=== PATIENT | female | born 1990 | race Caucasian/White ===

== ENCOUNTER 2016-05-10 20:58 | Emergency (ER) | payer MEDICAID, OTHER ==
[~2016-05-10] VITALS: Ht 170.2 cm; Wt 56.7 kg
[2016-05-10] MEDS ORDERED: ALPR0.25 PO (21:09)
--- NOTE | 2016-05-10 21:19 | ED EENT ---
History of Present Illness General Chief Complaint: Dental Problems/Pain Stated Complaint: JAW PAIN Nursing Triage Note: LEFT JAW PAIN SINCE 05/09/16. HX TMJ Source: patient Exam Limitations: no limitations History of Present Illness Time seen by provider: 21:18 Initial Comments 26-year-old female patient presents to the emergency department complaints of left jaw pain beginning 05/09/16 due to history of TMJ. Patient states she has been under a lot of stress lately which is causing muscle tension. Denies difficulty swallowing or difficulty breathing. Location Injury Occurred: denies known injury Timing/Duration: gradual Location: facial (left jaw) Prearrival Treatment: over the counter meds (600 mg motrin yesterday x1) Presenting Symptoms/Injuries: left jaw pain Modifying Factors: Worse With Other (worse with movement, palpation) Allergies and Home Medications Allergies Coded Allergies: haloperidol (Verified Allergy, Unknown, 05/10/16) Home Medications Alprazolam 0.25 Mg Tablet Unknown Dose PO UD (Reported) Review of Systems Constitutional: No chills, No dizziness, No fever, No malaise Eyes: No Symptoms Reported Ears: No Symptoms Reported Nose: no symptoms reported Mouth: see HPI Throat: no symptoms reported Respiratory: no symptoms reported Cardiovascular: no symptoms reported Musculoskeletal: see HPI other (left jaw) Skin: no symptoms reported Neurological: No Symptoms Reported All Other Systems Reviewed Negative Unless Noted: Yes (Negative excepted noted.) Past Mkyloqg-Jnffyf-Mpwsum Hx Patient Social History Alcohol Use: Denies Use Recreational Drug Use: No Smoking Status: Current Everyday Smoker Type Used: Cigarettes Recent Foreign Travel: No Contact w/Someone Who Travel: No Recent Infectious Disease Expo: No Recent Hopitalizations: No Physical Abuse Screen: No Sexual Abuse: No Seasonal Allergies Seasonal Allergies: No Surgeries HX Surgeries: Yes Surgeries: Eye Surgery Respiratory Hx Respiratory Disorders: No Cardiovascular Hx Cardiac Disorders: No Neurological Hx Neurological Disorders: No 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 System : No Hx 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 Disorders: No Genitourinary Hx Genitourinary Disorders: No Gastrointestinal Hx Gastrointestinal Disorders: No Musculoskeletal Hx Musculoskeletal Disorders: Yes (TMJ) Endocrine Hx Endocrine Disorders: No HEENT HX ENT Disorders: No Cancer Hx Cancer: No Psychosocial Hx Psychiatric Problems: Yes Behavioral Health Disorders: Anxiety, Bipolar Integumentary HX Skin/Integumentary Disorder: No Blood Transfusions Hx Blood Disorders: No Adverse Reaction to a Blood Tr: No Reviewed Nursing Assessment Reviewed/Agree w Nursing PMH: Yes Family Medical History Significant Family History: No Pertinent Family Hx Physical Exam Vital Signs Vital Sign - Last 12Hours 05/10/16 21:09 Temp 98.5 Pulse 89 Resp 18 B/P 121/79 Pulse Ox 98 O2 Delivery Room Air General Appearance: WD/WN no apparent distress Eyes: bilateral eye EOMI, bilateral eye PERRL, bilateral eye normal inspection Ears: bilateral ear TM normal, bilateral ear auricle normal, bilateral ear canal normal Nose: normal inspection Mouth/Throat: normal mouth inspection pharynx normalNo excessive drooling, No mandibular swelling, No maxillary swelling, No trismus, No uvula swelling, No voice changes, other (bilat TM joint TTP. TM joint does not track smoothly) Neck: full range of motion suppleNo lymphadenopathy (R), No lymphadenopathy (L ), tender lateralNo tender midline Cardiovascular: regular rate, rhythm no murmur Respiratory: lungs clear normal breath sounds no accessory muscle use Neurologic/Psychiatric: alert normal mood/affect oriented x 3 Skin: normal color warm/dry Progress/Results/Core Measures Results/Orders Vital Signs/I&O Vital Sign - Last 12Hours 05/10/16 21:09 Temp 98.5 Pulse 89 Resp 18 B/P 121/79 Pulse Ox 98 O2 Delivery Room Air Blood Pressure Mean: 93 Departure Impression Impression: Primary Impression: TMJ pain dysfunction syndrome Disposition: 01 HOME, SELF-CARE Condition: Improved Departure-Patient Inst. Decision time for Depature: 21:35 Referrals: NO,LOCAL PHYSICIAN (PCP/Family) Primary Care Physician Patient Instructions: Temporomandibular Joint (TMJ) Disorders (DC) Add. Discharge Instructions: All discharge instructions reviewed with patient and/or family. Voiced understanding. Medications as instructed. Tylenol Extra Strength over-the- counter as directed for pain. Ice packs or heating pads as needed for pain. Soft diet. No gum. Follow-up with the family practitioner of choice for recheck and to establish care. Call for appointment time. Return to the emergency department for worsened symptoms or any other concerns. 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
[2016-05-10] MEDS ORDERED: RX-TRAMADOL 50 MG (ULTRAM) TAB PPK#4 PO STA (21:29)
[2016-05-10] MEDS ORDERED: predniSONE 20 MG TAB PO ONE (21:30)
[2016-05-10] MEDS ORDERED: PRD20T PO (21:36)
[2016-05-10] MEDS ORDERED: DICL75TA2 PO (21:36)
[2016-05-10 21:43] VITALS: BP 121/79
== END 2016-05-10 21:42 | disposition home or self-care (01) ==
LOC: ER 21:01
DX: M26.69 Other specified disorders of temporomandibular joint (principal); F17.210 Nicotine dependence, cigarettes, uncomplicated
CPT/HCPCS: 99283

== ENCOUNTER 2016-05-14 13:44 | Emergency (ER) | payer MEDICAID ==
[~2016-05-14] VITALS: Ht 170.2 cm; Wt 59.0 kg
[~2016-05-14 13:44] MED LIST: ALPR0.25 PO; DICL75TA2 PO; PRD20T PO
--- OUTSIDE RECORDS SUMMARY | 2016-05-14 13:50 | XMS REPORT | Continuity of Care Document ---
Author Author [facility] Organization [facility] Address Unknown Phone Unavailable Care Team Providers Care Student Services Director Name Role Phone NO, LOCAL PHYSICIAN PCP Unavailable Insurance Providers Payer Name Policy Number Subscriber Name Relationship Unknown Juliane Lopez 17 Self / Same As Patient Advance Directives Directive Response Recorded Date/Time Advance Directives No 05/10/16 9:09pm Resuscitation Status Full Code 05/10/16 9:09pm Chief Complaint and Reason for Visit Chief Complaint Dental Problems/Pain Reason for Visit [id number] Problems Active Problems Medical Problem Onset Date Status TMJ pain dysfunction syndrome Unknown Acute Medications Current Home Medications Medication Dose Units Route Directions Days/Qty Instructions Start Date Alprazolam 0.25 Mg Unknown Dose Oral As Directed 05/10/16 Diclofenac Sodium 75 Mg 75 Mg Oral Twice A Day as needed for Pain 20 05/10/16 Prednisone 20 Mg 40 Mg Oral Daily 8 05/10/16 Social History Social History Problem Response Recorded Date/Time Alcohol Use Denies Use 05/10/2016 9:09pm Recreational Drug Use No 05/10/2016 9:09pm Recent Foreign Travel No 05/10/2016 9:09pm Recent Infectious Disease Exposure No 05/10/2016 9:09pm Hospitalization with Isolation Denies 05/10/2016 9:09pm Smoking Status Current Everyday Smoker 05/10/2016 9:09pm Type Used Cigarettes 05/10/2016 9:09pm Recent Hopitalizations No 05/10/2016 9:09pm Hospitalization with Isolation Denies 05/10/2016 9:09pm Query Response Start Date Stop Date Smoking Status Current Everyday Smoker Hospital Discharge Instructions No hospital discharge instructions. Plan of Care Discharge Date 05/10/16 9:42pm Disposition 01 HOME, SELF-CARE Condition at Discharge Improved Instructions/Education Provided Temporomandibular Joint (TMJ) Disorders (DC) Forms Provided Local Medical Staff Listing Prescriptions See Medication Section Referrals NO,LOCAL PHYSICIAN - Primary Care Physician Additional Instructions/Education All discharge instructions reviewed with patient and/or family. Voiced understanding. Medications as instructed. Tylenol Extra Strength evpi-htw-[id number] as directed for pain. Ice packs or heating pads as needed for pain. Soft diet. No gum. Follow-up with the family practitioner of choice for recheck and to establish care. Call for appointment time. Return to the emergency department for worsened symptoms or any other concerns. Functional Status No functional status results. Allergies, Adverse Reactions, Alerts Allergen Type Severity Reaction Status Last Updated Haloperidol Allergy Unknown Active 05/10/16 Immunizations No immunization records. Vital Signs Acute Vital Signs Vital Response Date/Time Temperature (Fahrenheit) 98.5 degrees F (97.6 - 99.5) 05/10/2016 9:09pm Temperature (Calculated Celsius) 36.29187 degrees C (36.4 - 37.5) 05/10/2016 9:09pm Temperature Source Temporal 05/10/2016 9:09pm Pulse Rate (adult) 89 bpm (60 - 90) 05/10/2016 9:09pm Respiratory Rate 18 bpm (12 - 24) 05/10/2016 9:09pm O2 Sat by Pulse Oximetry 98 % (88 - 100) 05/10/2016 9:09pm Blood Pressure 121/79 mm Hg 05/10/2016 9:09pm Blood Pressure Mean 93 mm Hg 05/10/2016 9:09pm Pain Numeric Pain Scale 8 05/10/2016 9:09pm Height (Feet) 5 feet 05/10/2016 9:09pm Height (Inches) 7 inches 05/10/2016 9:09pm Height (Calculated Centimeters) 170.479473 cm 05/10/2016 9:09pm Weight (Pounds) 125 pounds 05/10/2016 9:09pm Weight (Calculated Kilograms) 56.402904 kilograms 05/10/2016 9:09pm Capillary Refill Capillary Refill Less Than 3 Seconds 05/10/2016 9:09pm Height 5 ft 7 in Weight 125 lb Body Mass Index 19.6 kg/m^2 Results No known relevant diagnostic tests, laboratory data and/or discharge summary. Procedures No known history of procedures. Encounters Encounter Location Arrival/Admit Date Discharge/Depart Date Attending Provider Departed Emergency Room [facility] 05/10/16 9:01pm 05/10 9:42pm ABBI DUPONT Recent Diagnosis
--- NOTE | 2016-05-14 14:14 | ED Abdominal Pain ---
General Chief Complaint: Abdominal/GI Problems Stated Complaint: CHEST/BREATHING PAINS Nursing Triage Note: ARRIVED VIA AMB TO ROOM 08 WITHOUT DIFFICULTY. COMPLAINS OF UPPER MID ABD PAIN FOR X2 DAYS. Sepsis Screen: No Definite Risk Source of Information: Patient Exam Limitations: No Limitations History of Present Illness Time Seen By Provider: 14:13 Initial Comments To ER with epigastric abdominal pain for the past 2 days. Pain has been constant and worsened by eating. She has also had diarrhea and vomiting. She was started on diclofenac and prednisone 4 days ago for TMJ pain. She does not have a local physician and just moved here from [place], [place]. Timing/Duration: 2-3 Days Severity/Quality: Aching Location: Epigastric Radiation: No Radiation Activities at Onset: None Associated Symptoms: Denies Symptoms Allergies and Home Medications Allergies Coded Allergies: haloperidol (Verified Allergy, Unknown, 05/10/16) Home Medications Pantoprazole Sodium 40 Mg Tablet. #30 40 MG PO DAILY Prescribed by: LATRICIA BROCK on 05/14/16 [id number] Review of Systems Constitutional: see HPI chills EENTM: No Symptoms Reported Respiratory: No Symptoms Reported Cardiovascular: No Symptoms Reported Gastrointestinal: See HPI Abdominal Pain Diarrhea Nausea Genitourinary: No Symptoms Reported Musculoskeletal: no symptoms reported Skin: no symptoms reported Psychiatric/Neurological: No Symptoms Reported Endocrine: No Symptoms Reported Hematologic/Lymphatic: No Symptoms Reported Past Rcwlztw-Vydsxy-Eetsdp Hx Patient Social History Type Used: Cigarettes Recent Foreign Travel: No Contact w/Someone Who Travel: No Recent Infectious Disease Expo: No Recent Hopitalizations: No Seasonal Allergies Seasonal Allergies: No Surgeries HX Surgeries: Yes Surgeries: Eye Surgery Respiratory Hx Respiratory Disorders: No Cardiovascular Hx Cardiac Disorders: No Neurological Hx Neurological Disorders: No 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 System : No Hx 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 Disorders: No 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 Genitourinary Hx Genitourinary Disorders: No Gastrointestinal Hx Gastrointestinal Disorders: No Musculoskeletal Hx Musculoskeletal Disorders: Yes (TMJ) Endocrine Hx Endocrine Disorders: No HEENT HX ENT Disorders: No Cancer Hx Cancer: No Psychosocial Hx Psychiatric Problems: Yes Behavioral Health Disorders: Anxiety, Bipolar Integumentary HX Skin/Integumentary Disorder: No Blood Transfusions Hx Blood Disorders: No Adverse Reaction to a Blood Tr: No Family Medical History Significant Family History: No Pertinent Family Hx Physical Exam Vital Signs VS - Last 72 Hours, by Label 05/14/16 14:09 Temp 98.4 Pulse 100 Resp 18 B/P 125/85 Pulse Ox 98 Capillary Refill : Less Than 3 Seconds General Appearance: WD/WN no apparent distress HEENT: PERRL/EOMI normal ENT inspection Neck: non-tender full range of motion Respiratory: normal breath sounds no respiratory distress no accessory muscle use Gastrointestinal: normal bowel sounds soft tenderness (epigastric) Extremities: normal range of motion non-tender Neurologic/Psychiatric: alert normal mood/affect oriented x 3 Skin: normal color warm/dry Progress/Results/Core Measures Results/Orders Lab Results Laboratory Tests Test 05/14/16 14:50 05/14/16 15:10 Range/Units Alanine Aminotransferase (ALT/SGPT) 11 0-55 U/L Albumin 4.3 3.2-4.5 G/DL Alkaline Phosphatase 51 40-136 U/L Anion Gap 10 5-14 MMOL/L Aspartate Amino Transf (AST/SGOT) 12 5-34 U/L BUN/Creatinine Ratio 16 Band Neutrophils 0 % Basophils # (Auto) 0.0 0.0-0.1 10^3/uL Basophils % (Manual) 0 % Basophils (%) (Auto) 0 0-10 % Blood Urea Nitrogen 12 7-18 MG/DL Calcium Level 9.3 8.5-10.1 MG/DL Carbon Dioxide Level 25 21-32 MMOL/L Chloride Level 104 98-107 MMOL/L Creatinine 0.74 0.60-1.30 MG/DL Eosinophils # (Auto) 0.0 0.0-0.3 10^3/uL Eosinophils % (Manual) 0 % Eosinophils (%) (Auto) 0 0-10 % Estimat Glomerular Filtration Rate > 60 Glucose Level 109 H 70-105 MG/DL Hematocrit 36 35-52 % Hemoglobin 11.9 11.5-16.0 G/DL Hypochromasia SLIGHT Lipase 22 8-78 U/L Lymphocytes # (Auto) 1.4 1.0-4.0 X 10^3 Lymphocytes % (Manual) 6 % Lymphocytes (%) (Auto) 7 L 12-44 % Mean Corpuscular Hemoglobin 29 25-34 PG Mean Corpuscular Hemoglobin Concent 33 32-36 G/DL Mean Corpuscular Volume 87 80-99 FL Mean Platelet Volume 9.1 7.4-10.4 FL Monocytes # (Auto) 0.7 0.0-1.0 X 10^3 Monocytes % (Manual) 3 % Monocytes (%) (Auto) 3 0-12 % Neutrophils # (Auto) 18.7 H 1.8-7.8 X 10^3 Neutrophils % (Manual) 91 % Neutrophils (%) (Auto) 90 H 42-75 % Platelet Count 376 130-400 10^3/uL Potassium Level 4.1 3.6-5.0 MMOL/L Red Blood Count 4.16 L 4.35-5.85 10^6/uL Red Cell Distribution Width 13.3 10.0-14.5 % Sodium Level 139 135-145 MMOL/L Total Bilirubin 0.4 0.1-1.0 MG/DL Total Protein 7.0 6.4-8.2 G/DL White Blood Count 20.8 H 4.3-11.0 10^3/uL Ur Tricyclic Antidepressants Screen NEGATIVE NEGATIVE Urine Amorphous Sediment LARGE AUREA URATES H /LPF Urine Amphetamines Screen NEGATIVE NEGATIVE Urine Bacteria NEGATIVE /HPF Urine Barbiturates Screen NEGATIVE NEGATIVE Urine Benzodiazepines Screen POSITIVE H NEGATIVE Urine Bilirubin NEGATIVE NEGATIVE Urine Cannabinoids Screen NEGATIVE NEGATIVE Urine Casts NONE /LPF Urine Clarity VERY CLOUDY H Urine Cocaine Screen NEGATIVE NEGATIVE Urine Color YELLOW Urine Crystals NONE /LPF Urine Culture Indicated NO Urine Glucose (UA) NEGATIVE NEGATIVE Urine Ketones NEGATIVE NEGATIVE Urine Leukocyte Esterase 1+ H NEGATIVE Urine Methadone Screen NEGATIVE NEGATIVE Urine Methamphetamines Screen NEGATIVE NEGATIVE Urine Mucus NEGATIVE /LPF Urine Nitrite NEGATIVE NEGATIVE Urine Opiates Screen NEGATIVE NEGATIVE Urine Oxycodone Screen NEGATIVE NEGATIVE Urine Phencyclidine Screen NEGATIVE NEGATIVE Urine Propoxyphene Screen NEGATIVE NEGATIVE Urine Protein 1+ H NEGATIVE Urine RBC NONE /HPF Urine RBC (Auto) NEGATIVE NEGATIVE Urine Specific [place] 1.015 L 1.016-1.022 Urine Squamous Epithelial Cells 25-50 H /HPF Urine Urobilinogen NORMAL NORMAL MG/DL Urine WBC RARE /HPF Urine pH 7 5-9 My Orders Orders-LATRICIA BROCK TRANSCRIPTER Antacid Suspension (Mylanta Suspension (05/14/16 14:15) Lidocaine 2% Viscous 15 Ml (Xylocaine Vi (05/14/16 14:15) Cbc With Automated Diff (05/14/16 14:43) Comprehensive Metabolic Panel (05/14/16 14:43) Ua Culture If Indicated (05/14/16 14:43) Urine Bedside (05/14/16 14:43) Drug Screen Stat (Urine) (05/14/16 14:43) Lipase (05/14/16 14:43) Acetaminophen Tablet (Tylenol Tablet) (05/14/16 15:00) Manual Differential (05/14/16 14:50) Tramadol Tablet (Ultram Tablet) (05/14/16 15:15) Saline Lock/Iv-Start (05/14/16 15:14) Fentanyl Injection (Sublimaze Injection (05/14/16 15:15) Ct Abdomen/Pelvis W (05/14/16 15:14) Ns Iv 1000 Ml (Sodium Chloride 0.9%) (05/14/16 15:30) Iohexol Injection (Omnipaque 350 Mg/Ml 1 (05/14/16 15:30) Ns (Ivpb) (Sodium Chloride 0.9% Ivpb Bag (05/14/16 15:30) Medications Given in ED Current Medications Medications Dose Ordered Sig/Chandler Route Start Time Stop Time Status Last Admin Dose Admin Acetaminophen 1,000 mg ONCE ONCE PO 05/14/16 15:00 05/14/16 15:01 DC 05/14/16 14:59 1,000 MG Al Hydrox/Mg Hydrox/Simethicone 30 ml ONCE ONCE PO 05/14/16 14:15 05/14/16 14:16 DC 05/14/16 14:18 30 ML Fentanyl Citrate 50 mcg ONCE ONCE IVP 05/14/16 15:15 05/14/16 15:16 DC 05/14/16 15:26 50 MCG Iohexol 100 ml ONCE ONCE IV 05/14/16 15:30 05/14/16 15:31 DC 05/14/16 15:30 100 ML Lidocaine HCl 15 ml ONCE ONCE PO 05/14/16 14:15 05/14/16 14:16 DC 05/14/16 14:18 15 ML Sodium Chloride 100 ml ONCE ONCE IV 05/14/16 15:30 05/14/16 15:31 DC 05/14/16 15:30 80 ML Vital Signs/I&O Vital Sign - Last 12Hours 05/14/16 14:09 Temp 98.4 Pulse 100 Resp 18 B/P 125/85 Pulse Ox 98 Blood Pressure Mean: 98 Departure Communication Progress Notes 1444-no improvement in pain after GI cocktail. We will obtain labs. 1546-leukocytosis is noted which is likely a white cell demargination given her steroid prescription. Impression Impression: Primary Impression: Nausea vomiting and diarrhea Additional Impression: Leukocytosis Disposition: 01 HOME, SELF-CARE Condition: Stable Departure-Patient Inst. Decision time for Depature: 15:46 Referrals: [facility] (PCP/Family) Primary Care Physician Patient Instructions: Acute Abdomen (Belly Pain), Adult (DC) Add. Discharge Instructions: 1. Medication as directed 2. Follow-up with your doctor next week 3. Return to ER for any worsening All discharge instructions reviewed with patient and/or family. Voiced understanding. Scripts Pantoprazole Sodium (Protonix)40 Mg Tablet.dr40 Mg PO DAILY #30 TAB Prov:LATRICIA BROCK APRN 05/14/16 LATRICIA BROCK APRN May 14, 2016 14:14
[2016-05-14] MEDS ORDERED: LIDOCAINE 2% VISCOUS 15 ML UDC PO ONE (14:15)
[2016-05-14] MEDS ORDERED: ANTACID SUSP 30 ML UDC (MYLANTA) PO ONE (14:15)
[2016-05-14 14:59] LABS: BASOPHILS % (AUTO) 0 % (0-10); EOSINOPHILS % (AUTO) 0 % (0-10); LYMPHOCYTES # (AUTO) 1.4 X 10^3 (1.0-4.0); LYMPHOCYTES % (AUTO) 7 % (12-44); MEAN CORPUSCULAR HEMOGLOBIN 29 PG (25-34); MEAN CORPUSCULAR HGB CONC 33 G/DL (32-36); MEAN CORPUSCULAR VOLUME 87 FL (80-99); MEAN PLATELET VOLUME 9.1 FL (7.4-10.4); MONOCYTES # (AUTO) 0.7 X 10^3 (0.0-1.0); MONOCYTES % (AUTO) 3 % (0-12); NEUTROPHILS # (AUTO) 18.7 X 10^3 (1.8-7.8); NEUTROPHILS % (AUTO) 90 % (42-75); PLATELET COUNT 376 10^3/uL (130-400); RED BLOOD COUNT 4.16 10^6/uL (4.35-5.85); RED CELL DISTRIBUTION WIDTH 13.3 % (10.0-14.5); WHITE BLOOD COUNT 20.8 10^3/uL (4.3-11.0)
[2016-05-14] MEDS ORDERED: ACETAMINOPHEN 500 MG TAB (TYLENOL) PO ONE (15:00)
[2016-05-14] MEDS ORDERED: fentaNYL INJECTION 100 MCG/2 ML AMP IVP ONE (15:15)
[2016-05-14 15:18] LABS: ALANINE AMINOTRANSFERASE 11 U/L (0-55); ALBUMIN 4.3 G/DL (3.2-4.5); ANION GAP 10 MMOL/L (5-14); ASPARTATE AMINO TRANSFERASE 12 U/L (5-34); BILIRUBIN,TOTAL 0.4 MG/DL (0.1-1.0); BLOOD UREA NITROGEN 12 MG/DL (7-18); BUN/CREATININE RATIO 16; CALCIUM 9.3 MG/DL (8.5-10.1); CARBON DIOXIDE 25 MMOL/L (21-32); CHLORIDE 104 MMOL/L (98-107); CREATININE SERUM 0.74 MG/DL (0.60-1.30); GFR ESTIMATED > 60; GLUCOSE 109 MG/DL (70-105); LIPASE 22 U/L (8-78); POTASSIUM 4.1 MMOL/L (3.6-5.0); SODIUM 139 MMOL/L (135-145)
[2016-05-14 15:23] LABS: BILIRUBIN,URINE NEGATIVE (NEGATIVE); KETONES,URINE NEGATIVE (NEGATIVE); LEUKOCYTE ESTERASE ,URINE 1+ (NEGATIVE); NITRITE,URINE NEGATIVE (NEGATIVE); PH,URINE 7 (5-9); PROTEIN,URINE 1+ (NEGATIVE); UROBILINOGEN,URINE NORMAL (NORMAL)
[2016-05-14] MEDS ORDERED: NS 100 ML (IVPB) BAG IV ONE (15:30)
[2016-05-14] MEDS ORDERED: IOHEXOL 350 MG/ML 100 ML (OMNIPAQUE 350) VIAL IV ONE (15:30)
[2016-05-14] MEDS ORDERED: NS IV 1000 ML 1,000 ML IV SCH (15:30)
[2016-05-14 15:38] LABS: BAND NEUTROPHILS 0 %; BASOPHILS % (MANUAL) 0 %; EOSINOPHILS % (MANUAL) 0 %; LYMPHOCYTES % (MANUAL) 6 %; NEUTROPHILS % (MANUAL) 91 %
[2016-05-14 15:39] LABS: HYPOCHROMASIA SLIGHT
[2016-05-14 15:39] LABS: SQUAMOUS EPITHELIAL CELL,UR 25-50 /HPF; WBC,URINE RARE /HPF
[2016-05-14] MEDS ORDERED: PANT40TA2 PO (15:47)
--- NOTE | 2016-05-14 16:19 | Diagnostic Imaging Report ---
PROCEDURE: CT abdomen and pelvis with contrast. TECHNIQUE: Multiple contiguous axial images were obtained through the abdomen and pelvis after the administration of intravenous contrast. INDICATION: Upper abdominal pain x2 days. CORRELATION STUDY: None. FINDINGS: LOWER THORAX: Clear. LIVER: Unremarkable. GALLBLADDER: Somewhat contracted but otherwise unremarkable. No significant bile duct dilatation. SPLEEN: Unremarkable. PANCREAS: Unremarkable. ADRENAL GLANDS: Unremarkable. KIDNEYS: Normal configuration. No calcification or obstruction. ABDOMINAL AORTA: Unremarkable, nonaneurysmal. GASTROINTESTINAL TRACT: There are mildly prominent fluid-filled loops of small bowel. No evidence for obstruction. Gas and stool throughout the colon. Normal appendix in the low right lower quadrant. No abdominal ascites or free air. URINARY BLADDER: Relatively decompressed but otherwise unremarkable. REPRODUCTIVE: Intrauterine contraceptive device is present. There is some asymmetric fluid within the low uterine segment and cervical canal. A 2.2 cm left ovarian cyst. No significant free pelvic fluid. Several cystic areas noted about the labia bilaterally, may be reflective of a potential Bartholin's gland cyst. OSSEOUS STRUCTURES: No acute abnormality. IMPRESSION: 1. Mildly prominent loops of small bowel may be reflective of nonspecific enteritis. No evidence for obstruction. Dictated by: Dictated on workstation # [id number]
[2016-05-14] MEDS ORDERED: HYOSCYAMINE 0.125 MG (LEVSIN) TAB PO ONE (16:30)
[2016-05-14 16:37] VITALS: BP 125/85
== END 2016-05-14 16:37 | disposition home or self-care (01) ==
LOC: EDUNIT# 13:44 → ER 13:46
DX: R11.2 Nausea with vomiting, unspecified (principal); R19.7 Diarrhea, unspecified; D72.829 Elevated white blood cell count, unspecified
CPT/HCPCS: 36415; 74177; 80053; 80306; 81000; 83690; 84703; 85007; 85027; 96361; 96374

== ENCOUNTER 2016-05-24 08:03 | Emergency (ER) | payer MEDICAID ==
[~2016-05-24] VITALS: Ht 170.2 cm; Wt 58.5 kg
[~2016-05-24 08:03] MED LIST changes: +PANT40TA2 PO
--- OUTSIDE RECORDS SUMMARY | 2016-05-24 08:09 | XMS REPORT | Continuity of Care Document ---
Author Author [facility] Organization [facility] Address Unknown Phone Unavailable Care Team Providers Care Rn First Assist Name Role Phone [facility] PCP Insurance Providers Payer Name Policy Number Subscriber Name Relationship [facility] [id number] Juliane Lopez 18 Self / Same As Patient Advance Directives Directive Response Recorded Date/Time Advance Directives No 05/10/16 9:09pm Chief Complaint and Reason for Visit Chief Complaint Abdominal/GI Problems Reason for Visit [id number] Leukocytosis Problems Active Problems Medical Problem Onset Date Status Leukocytosis Unknown Acute Nausea vomiting and diarrhea Unknown Acute TMJ pain dysfunction syndrome Unknown Acute Medications Current Home Medications Medication Dose Units Route Directions Days/Qty Instructions Start Date Pantoprazole Sodium 40 Mg 40 Mg Oral Daily 30 05/14/16 Past Home Medications Medication Directions Ordered Status Alprazolam 0.25 Mg Tablet, Unknown Dose Oral As Directed 05/10/16 Discontinued Diclofenac Sodium 75 Mg Tablet.dr, 75 Mg Oral Twice A Day as needed for Pain 05/10/16 Discontinued Prednisone 20 Mg Tab, 40 Mg Oral Daily 05/10/16 Discontinued Social History Social History Problem Response Recorded Date/Time Recent Foreign Travel No 05/14/2016 2:09pm Recent Infectious Disease Exposure No 05/14/2016 2:09pm Type Used Cigarettes 05/10/2016 9:09pm Recent Hopitalizations No 05/14/2016 2:12pm Hospital Discharge Instructions No hospital discharge instructions. Plan of Care Discharge Date 05/14/16 4:37pm Disposition 01 HOME, SELF-CARE Condition at Discharge Stable Instructions/Education Provided Acute Abdomen (Belly Pain), Adult (DC) Prescriptions See Medication Section Referrals [facility] - Primary Care Physician Additional Instructions/Education 1. Medication as directed 2. Follow-up with your doctor next week 3. Return to ER for any worsening All discharge instructions reviewed with patient and/or family. Voiced understanding. Functional Status No functional status results. Allergies, Adverse Reactions, Alerts Allergen Type Severity Reaction Status Last Updated Haloperidol Allergy Unknown Active 05/10/16 Immunizations No immunization records. Vital Signs Acute Vital Signs Vital Response Date/Time Temperature (Fahrenheit) 98.4 degrees F (97.6 - 99.5) 05/14/2016 2:09pm Temperature (Calculated Celsius) 36.33561 degrees C (36.4 - 37.5) 05/14/2016 2:09pm Temperature Source Tympanic 05/14/2016 2:09pm Pulse Rate (adult) 100 bpm (60 - 90) 05/14/2016 2:09pm Respiratory Rate 18 bpm (12 - 24) 05/14/2016 2:09pm O2 Sat by Pulse Oximetry 98 % (88 - 100) 05/14/2016 2:09pm Blood Pressure 125/85 mm Hg 05/14/2016 2:09pm Blood Pressure Mean 98 mm Hg 05/14/2016 2:09pm Pain Numeric Pain Scale 5-Moderate Pain 05/14/2016 3:53pm Pain Numeric Pain Scale 5-Moderate Pain 05/14/2016 3:53pm Height (Feet) 5 feet 05/14/2016 2:09pm Height (Inches) 7 inches 05/14/2016 2:09pm Height (Calculated Centimeters) 170.575849 cm 05/14/2016 2:09pm Weight (Pounds) 130 pounds 05/14/2016 2:09pm Weight (Calculated Kilograms) 58.758324 kilograms 05/14/2016 2:09pm Capillary Refill Capillary Refill Less Than 3 Seconds 05/14/2016 2:09pm Height 5 ft 7 in Weight 130 lb Body Mass Index 20.4 kg/m^2 Results Pending Laboratory Results Test Name Collection Date/Time Procedures No known history of procedures. Encounters Encounter Location Arrival/Admit Date Discharge/Depart Date Attending Provider Departed Emergency Room [facility] 05/14/16 1:46pm 05/14 4:37pm LATRICIA BROCK APRN Departed Emergency Room [facility] 05/10/16 9:01pm 05/10 9:42pm ABBI DUPONT Recent Diagnosis
[2016-05-24] MEDS ORDERED: SULF1TAB35 PO (08:45)
--- NOTE | 2016-05-24 08:45 | ED General ---
General Chief Complaint: Laceration Stated Complaint: RIGHT MIDDLE FINGER LAC Source of Information: Patient Exam Limitations: No Limitations History of Present Illness Time Seen by Provider: 08:25 Initial Comments Patient presents with a laceration on the dorsum of the right middle finger. She obtained the laceration when she put her hand into sink water late last night. She did not present for care at the time of the injury. She presents today because of increasing pain in the finger that radiates up into the hand. This pain limits her range of motion. There are no outward signs of infection such as erythema or purulence. She denies any blunt trauma or high impact injury to the finger or hand. Allergies and Home Medications Allergies Coded Allergies: haloperidol (Verified Allergy, Unknown, 05/10/16) Home Medications Sulfamethoxazole/Trimethoprim 1 Each Tablet #20 1 EACH PO BID Prescribed by: BHAVESH ALANIZ on 05/24/16 0845 Constitutional: no symptoms reported : No Musculoskeletal: see HPI Skin: see HPI Psychiatric/Neurological: No Symptoms Reported Past Apinipd-Xhjouo-Rspwkn Hx Patient Social History Type Used: Cigarettes Recent Foreign Travel: No Contact w/Someone Who Travel: No Recent Hopitalizations: No Seasonal Allergies Seasonal Allergies: No Surgeries HX Surgeries: Yes Surgeries: Eye Surgery Respiratory Hx Respiratory Disorders: No Cardiovascular Hx Cardiac Disorders: No Neurological Hx Neurological Disorders: No 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 System 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 Genitourinary Hx Genitourinary Disorders: No Gastrointestinal Hx Gastrointestinal Disorders: No Musculoskeletal Hx Musculoskeletal Disorders: Yes (TMJ) Endocrine Hx Endocrine Disorders: No HEENT HX ENT Disorders: No Cancer Hx Cancer: No Psychosocial Hx Psychiatric Problems: Yes Behavioral Health Disorders: Anxiety, Bipolar Integumentary HX Skin/Integumentary Disorder: No Blood Transfusions Hx Blood Disorders: No Adverse Reaction to a Blood Tr: No Family Medical History Significant Family History: No Pertinent Family Hx Physical Exam Vital Signs Vital Sign - Last 12Hours 05/24/16 08:25 Temp 97.1 Pulse 70 Resp 16 B/P 111/88 Pulse Ox 98 O2 Delivery Room Air Capillary Refill : General Appearance: WD/WN Mild Distress HEENT: PERRL/EOMI Normal ENT Inspection Respiratory: No Respiratory Distress Extremity: Other (1.5 cm laceration on the dorsum aspect of the right third finger. There is no active bleeding. No evidence of infection such as inflammation, swelling, erythema, or purulence. 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 Patient has significant pain reported that is disproportionate to mechanism and the visible injury. Although no obvious infection is present, antibiotics are being prescribed as a precaution as her pain may be related to early infection. Patient declines x-ray as she denies any blunt trauma that would require x-ray. She reports tetanus booster was last updated 3 years ago. Departure Impression Impression: Primary Impression: Laceration of finger Qualified Code: S61.219A - Laceration without foreign body of unspecified finger without damage to nail, initial encounter Additional Impression: Hand pain, right Disposition: 01 HOME, SELF-CARE Condition: Stable Departure-Patient Inst. Decision time for Depature: 08:35 Referrals: [facility] (PCP/Family) Primary Care Physician Patient Instructions: Laceration Infection Add. Discharge Instructions: Your wound is too old to repair with stitches or glue. Your pain may be resulting from early infection of the wound. Complete your antibiotics as prescribed. Follow-up with your primary care provider or return to the ER if symptoms worsen. You may take ibuprofen up to 600 mg every 6 hours as needed for pain. Add Tylenol up to 1000 mg every 6 hours for additional pain relief if needed. Keep the wound clean and dry except for normal showering and handwashing until the wound heals over. You may apply antibiotic ointment for additional protection of the wound. Work on flexion and extension of the fingers to prevent your hand from becoming stiff while healing. All discharge instructions reviewed with patient and/or family. Voiced understanding. Scripts Sulfamethoxazole/Trimethoprim (Bactrim Ds Tablet)1 Each Tablet1 Each PO BID #20 TAB Prov:BHAVESH NOGUEIRA MD 05/24/16 BHAVESH NOGUEIRA MD May 24, 2016 08:45
[2016-05-24 08:56] VITALS: BP 110/80
== END 2016-05-24 08:56 | disposition home or self-care (01) ==
LOC: EDUNIT# 08:03 → ER 08:06
DX: S61.212A Laceration without foreign body of right middle finger without damage to nail, initial encounter (principal); W45.8XXA Other foreign body or object entering through skin, initial encounter; Y93.G1 Activity, food preparation and clean up; Y92.010 Kitchen of single-family (private) house as the place of occurrence of the external cause; Y99.8 Other external cause status

== ENCOUNTER 2016-08-26 13:30 | Emergency (ER) | payer MEDICAID ==
[~2016-08-26] VITALS: Ht 170.2 cm; Wt 59.0 kg
[~2016-08-26 13:30] MED LIST changes: +SULF1TAB35 PO
[2016-08-26] MEDS ORDERED: AMOX500T2 PO (13:53)
--- NOTE | 2016-08-26 14:04 | ED Lower Extremity ---
General Chief Complaint: Lower Extremity Stated Complaint: RIGHT FOOT INJURY Nursing Triage Note: PT STATES SHE ACCIDENTALLY KICKED HER TOILET, CC OF RT FOOT PAIN. Nursing Sepsis Screen: No Definite Risk History of Present Illness Time seen by provider: 13:55 Initial Comments Evaluation for right foot pain. Patient was trying to kick her dog, she missed and kicked her toilet instead. She is having pain in the first MTP joint of the right foot. She denies any previous history of foot injuries. Onset: just prior to arrival Pain/Injury Location: right 1st toe Method of Injury: direct blow Modifying Factors: Improves With Cold Therapy, Improves With Rest Allergies and Home Medications Allergies Coded Allergies: haloperidol (Verified Allergy, Unknown, 05/10/16) Home Medications Amoxicillin 500 Mg Tablet, 500 MG PO QID, (Reported) Hydrocodone/Acetaminophen 1 Each Tablet, 1 EACH PO Q4H PRN for PAIN, #20 Ref 0 Prescribed by: JAM AVITIA on 08/26/16 1430 Constitutional: no symptoms reported, see HPI EENTM: no symptoms reported, see HPI Respiratory: no symptoms reported, see HPI Cardiovascular: no symptoms reported, see HPI Gastrointestinal: no symptoms reported, see HPI Genitourinary: no symptoms reported, see HPI Musculoskeletal: see HPI, joint pain (right first MTP) Skin: no symptoms reported, see HPI Psychiatric/Neurological: No Symptoms Reported, See HPI All Other Systems Reviewed Negative Unless Noted: Yes Past Mzziekf-Oqfqfe-Qwimuo Hx Patient Social History Alcohol Use: Occasionally Uses Recreational Drug Use: No Smoking Status: Current Everyday Smoker Type Used: Cigarettes Recent Foreign Travel: No Contact w/Someone Who Travel: No Recent Infectious Disease Expo: No Recent Hopitalizations: No Seasonal Allergies Seasonal Allergies: No Surgeries HX Surgeries: Yes Surgeries: Eye Surgery Respiratory Hx Respiratory Disorders: No Cardiovascular Hx Cardiac Disorders: No Neurological Hx Neurological Disorders: No 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 System : No 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 Genitourinary Hx Genitourinary Disorders: No Gastrointestinal Hx Gastrointestinal Disorders: No Musculoskeletal Hx Musculoskeletal Disorders: Yes (TMJ) Endocrine Hx Endocrine Disorders: No HEENT HX ENT Disorders: No Cancer Hx Cancer: No Psychosocial Hx Psychiatric Problems: Yes Behavioral Health Disorders: Anxiety, Bipolar Integumentary HX Skin/Integumentary Disorder: No Blood Transfusions Hx Blood Disorders: No Adverse Reaction to a Blood Tr: No Reviewed Nursing Assessment Reviewed/Agree w Nursing PMH: Yes Family Medical History Significant Family History: No Pertinent Family Hx Physical Exam Vital Signs Vital Sign - Last 12Hours 08/26/16 13:44 Temp 99.6 Pulse 90 Resp 22 B/P (MAP) 139/101 Pulse Ox 100 O2 Delivery Room Air Capillary Refill : Less Than 3 Seconds General Appearance: WD/WN, no apparent distress Neck: non-tender, full range of motion, supple, normal inspection Cardiovascular: normal peripheral pulses, regular rate, rhythm Respiratory: chest non-tender, lungs clear Ankles: right ankle non-tender, right ankle normal inspection, right ankle normal range of motion, right ankle no evidence of injury, right ankle other ( negative anterior drawer, power V/V with dorsiflexion, plantarflexion, inversion and eversion resisted motion. ) Feet: right foot limited range of motion (right rate toe), right foot pain ( right great toe at the MTP joint), right foot soft tissue tenderness (right great toe), right foot swelling (right great toe) Neurologic/Tendon: normal sensation, normal motor functions, normal tendon functions Neurologic/Psychiatric: no motor/sensory deficits, alert, normal mood/affect, oriented x 3 Skin: normal color, warm/dry Progress/Results/Core Measures Results/Orders My Orders Orders - JAM AVITIA Ibuprofen Tablet (Motrin Tablet) (08/26/16 14:05) Foot, Right, 3 View (08/26/16 14:05) Hydrocodone/Apap 5/325 Tablet (Lortab 5 (08/26/16 14:24) Vital Signs/I&O Vital Sign - Last 12Hours 08/26/16 08/26/16 08/26/16 13:44 14:29 14:42 Temp 99.6 99.6 99.6 Pulse 90 88 Resp 22 20 B/P (MAP) 139/101 Pulse Ox 100 100 O2 Delivery Room Air Blood Pressure Mean: 114 Progress Note : Time: 13:55 Progress Note Initial evaluation completed, ibuprofen 600 mg by mouth ordered for pain. X- rays of the right foot. 1430 reviewed x-rays which show nondisplaced oblique fracture of the proximal phalanx of the right great toe. This was discussed with the patient [place] 5/325 mg ordered for pain. Chad tape the right great toe to the second toe Bipin wrap applied and rehabilitation shoe. Instructed patient to seek care from her primary care provider who can then refer her to orthopedics. Diagnostic Imaging Diagonstic Imaging: Xray Plain Films/CT/US/NM/MRI: other (right foot) Comments NAME: [facility] REC#: [id number] PT STATUS: REG ER : 1990 PHYSICIAN: JAM AVITIA ADMIT DATE: 08/26/16/ER Signed Date of Exam: 08/26/16 FOOT, RIGHT, 3 VIEW INDICATION: Right foot pain 3 views of the foot show minimally displaced oblique fracture through the shaft of the proximal phalanx of the big toe. IMPRESSION: Minimally displaced oblique fracture of the proximal phalanx of the right great toe. Dictated by: Dictated on workstation # [id number] Dict: 08/26/16 1423 Trans: 08/26/16 1431 Interpreted by: MARIBELL WICK Electronically signed by: MARIBELL WICK 08/26/16 1431 Reviewed: Reviewed by Me, Reviewed/Discussed (with Dr. Gardner) Departure Impression Impression: Primary Impression: Fracture of great toe of right foot Qualified Codes: S92.414A - Nondisplaced fracture of proximal phalanx of right great toe, initial encounter for closed fracture Disposition: 01 HOME, SELF-CARE Condition: Stable Departure-Patient Inst. Decision time for Depature: 14:15 Referrals: [facility] ([place]/Family) Primary Care Physician Patient Instructions: Toe Fracture (DC) Add. Discharge Instructions: All discharge instructions reviewed with patient and/or family. Voiced understanding. Chad tape toes and wear Rehab Shoe Ice to Right Great toe 20 min, every 2 hours. You will need to see your Primary Care Provider and they can refer you to Dr. Rahman. Ibuprofen 600 MG every 8 hours. Crutches as needed for ambulation. Scripts Hydrocodone/Acetaminophen (Hydrocodon -Acetaminophen 5-325) 1 Each Tablet 1 EACH PO Q4H Y for PAIN, #20 TAB 0 Refills Prov: JAM AVITIA 08/26/16 Work/School Note: Work Release Form Date Seen in the Emergency Department: Aug 26, 2016 Return to Work: August 31, 2016 Restrictions: Need Release from Doctor Copy Copies To 1: ERNIE CHAUDHARI MD Copies To 2: REENA RAHMAN MD, AMY ARNP Aug 26, 2016 14:04
[2016-08-26] MEDS ORDERED: IBUPROFEN TABLET 200 MG TAB PO STA (14:05)
[2016-08-26] MEDS ORDERED: HYDROcodone/APAP 5 MG/325 MG (LORTAB) TAB PO STA (14:24)
--- NOTE | 2016-08-26 14:26 | Diagnostic Imaging Report ---
INDICATION: Right foot pain 3 views of the foot show minimally displaced oblique fracture through the shaft of the proximal phalanx of the big toe. IMPRESSION: Minimally displaced oblique fracture of the proximal phalanx of the right great toe. Dictated by: Dictated on workstation # [id number]
[2016-08-26] MEDS ORDERED: HYDR-3812 PO (14:30)
[2016-08-26 14:42] VITALS: BP 125/95
== END 2016-08-26 14:42 | disposition home or self-care (01) ==
LOC: EDUNIT# 13:30 → ER 13:32
DX: S92.411A Displaced fracture of proximal phalanx of right great toe, initial encounter for closed fracture (principal); F17.210 Nicotine dependence, cigarettes, uncomplicated; W22.09XA Striking against other stationary object, initial encounter; Y92.012 Bathroom of single-family (private) house as the place of occurrence of the external cause; Y99.8 Other external cause status
CPT/HCPCS: 73630; 99283

== ENCOUNTER 2016-08-31 10:28 | Emergency (ER) | payer MEDICAID ==
[~2016-08-31] VITALS: Ht 160 cm; Wt 63.5 kg
[~2016-08-31 10:28] MED LIST changes: +AMOX500T2 PO; +HYDR-3812 PO
[2016-08-31] MEDS ORDERED: NAPR500T3 PO (10:45)
--- NOTE | 2016-08-31 10:46 | ED Lower Extremity ---
General Stated Complaint: RIGHT BIG TOE RECHECK/SWELLING Source: patient Exam Limitations: no limitations History of Present Illness Time seen by provider: 10:43 Initial Comments To ER for pain in the right great toe. She was seen here on August 26 diagnosed with a nondisplaced fracture. She at that time had attempted to kick her dog but missed and kicked something hard instead. She is out of her pain pills. Onset: just prior to arrival Severity: moderate Pain/Injury Location: right 1st toe Method of Injury: direct blow Modifying Factors: Worse With Movement Allergies and Home Medications Allergies Coded Allergies: haloperidol (Verified Allergy, Unknown, 05/10/16) Home Medications Amoxicillin 500 Mg Tablet, 500 MG PO QID, (Reported) Hydrocodone/Acetaminophen 1 Each Tablet, 1 EACH PO Q4H PRN for PAIN, #20 Ref 0 Prescribed by: JAM AVITIA on 08/26/16 1430 Constitutional: see HPI EENTM: see HPI Respiratory: no symptoms reported Cardiovascular: no symptoms reported Genitourinary: no symptoms reported Musculoskeletal: see HPI Skin: see HPI Psychiatric/Neurological: No Symptoms Reported Past Ykoazdf-Gpipuz-Efgbpf Hx Patient Social History Type Used: Cigarettes Recent Foreign Travel: No Contact w/Someone Who Travel: No Recent Hopitalizations: No Seasonal Allergies Seasonal Allergies: No Surgeries HX Surgeries: Yes Surgeries: Eye Surgery Respiratory Hx Respiratory Disorders: No Cardiovascular Hx Cardiac Disorders: No Neurological Hx Neurological Disorders: No 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 System 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 Genitourinary Hx Genitourinary Disorders: No Gastrointestinal Hx Gastrointestinal Disorders: No Musculoskeletal Hx Musculoskeletal Disorders: Yes (TMJ) Endocrine Hx Endocrine Disorders: No HEENT HX ENT Disorders: No Cancer Hx Cancer: No Psychosocial Hx Psychiatric Problems: Yes Behavioral Health Disorders: Anxiety, Bipolar Integumentary HX Skin/Integumentary Disorder: No Blood Transfusions Hx Blood Disorders: No Adverse Reaction to a Blood Tr: No Family Medical History Significant Family History: No Pertinent Family Hx Physical Exam Vital Signs Capillary Refill : General Appearance: WD/WN, no apparent distress HEENT: PERRL/EOMI, normal ENT inspection Neck: non-tender, full range of motion Respiratory: no respiratory distress, no accessory muscle use Hips: bilateral hip non-tender, bilateral hip normal inspection, bilateral hip normal range of motion Legs: bilateral leg non-tender, bilateral leg normal inspection, bilateral leg normal range of motion Knees: bilateral knee non-tender, bilateral knee normal inspection, bilateral knee normal range of motion Ankles: bilateral ankle non-tender, bilateral ankle normal inspection, bilateral ankle normal range of motion Feet: right foot ecchymosis (over the first and second toe), right foot pain, right foot swelling Neurologic/Psychiatric: alert, normal mood/affect, oriented x 3 Skin: normal color, warm/dry Comments She does have a Velcro postop shoe on, first and second toes are alice taped together Departure Impression Impression: Primary Impression: Fracture of toe Disposition: HOME, SELF-CARE Condition: Stable Departure-Patient Inst. Decision time for Depature: 10:44 Referrals: [facility] (PCP/Family) Primary Care Physician Patient Instructions: Toe Fracture Add. Discharge Instructions: 1. Keep the toes alice taped for another week then you may take it off 2. Wear the walking shoe for another 2-3 weeks 3. Tylenol and prescribed pain medication for pain. Scripts Naproxen (Naproxen) 500 Mg Tablet 500 MG PO BID Y for PAIN-MODERATE, #30 TAB Prov: LATRICIA BROCK APRN 08/31/16 Work/School Note: Work Release Form Date Seen in the Emergency Department: August 31, 2016 Return to Work: September 01, 2016 Other Restrictions Listed Below: Wear the walking shoe while at work. LATRICIA BROCK APRN August 31, 2016 10:46
[2016-08-31] MEDS ORDERED: MELO15TA39 (10:52)
[2016-08-31 11:05] VITALS: BP 135/84
--- NOTE | 2016-08-31 11:29 | Diagnostic Imaging Report ---
EXAMINATION: Three views of the right foot. INDICATION: Injury. FINDINGS: There is a nondisplaced oblique fracture of the proximal phalanx of the right great toe. No subluxation or dislocation. No definite extension to the articular surface. No radiopaque foreign body. The joint alignment is satisfactory. IMPRESSION: Nondisplaced oblique fracture of the proximal phalanx of the right great toe. Dictated by: Dictated on workstation # [id number]
== END 2016-08-31 11:05 | disposition home or self-care (01) ==
LOC: EDUNIT# 10:28 → ER 10:31
DX: S92.411A Displaced fracture of proximal phalanx of right great toe, initial encounter for closed fracture (principal); Z76.0 Encounter for issue of repeat prescription; W22.09XA Striking against other stationary object, initial encounter; Y92.012 Bathroom of single-family (private) house as the place of occurrence of the external cause; Y99.8 Other external cause status
CPT/HCPCS: 73630; 99282

== ENCOUNTER 2016-11-11 12:44 | Emergency (ER) | payer MEDICAID ==
[~2016-11-11] VITALS: Ht 170.2 cm; Wt 54.4 kg
[~2016-11-11 12:44] MED LIST changes: +MELO15TA39; +NAPR500T3 PO
--- NOTE | 2016-11-11 13:01 | ED Head Injury ---
General Chief Complaint: Laceration Stated Complaint: LACERATION ABOVE LT EYE/FALL Source: patient Exam Limitations: no limitations History of Present Illness Time seen by provider: 12:59 Initial Comments To ER with reports of a laceration to the left forehead. Patient states that she was going down her stairs at home when she tripped over her baby gate falling down one step. She has a laceration to the medial superior left eyebrow. No loss of consciousness. Minimal neck pain. Severe headache. She arrives tearful and hysterical. Her tetanus is up-to-date. Occurred: just prior to arrival Severity: mild Loss of Consciousness: no loss of consciousness Allergies and Home Medications Allergies Coded Allergies: haloperidol (Verified Allergy, Unknown, 05/10/16) Home Medications Meloxicam 15 Mg Tablet, #21 (Reported) Constitutional: see HPI Eyes: No Symptoms Reported Ears, Nose, Mouth, Throat: no symptoms reported Respiratory: no symptoms reported Cardiovascular: no symptoms reported Genitourinary: no symptoms reported Musculoskeletal: no symptoms reported Skin: see HPI Psychiatric/Neurological: No Symptoms Reported Past Jcpcymm-Lbefjd-Vkzpuk Hx Patient Social History Type Used: Cigarettes Recent Foreign Travel: No Contact w/Someone Who Travel: No Recent Hopitalizations: No Seasonal Allergies Seasonal Allergies: No Surgeries HX Surgeries: Yes Surgeries: Eye Surgery Respiratory Hx Respiratory Disorders: No Cardiovascular Hx Cardiac Disorders: No Neurological Hx Neurological Disorders: No 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 Genitourinary Hx Genitourinary Disorders: No Gastrointestinal Hx Gastrointestinal Disorders: No Musculoskeletal Hx Musculoskeletal Disorders: Yes (TMJ) Endocrine Hx Endocrine Disorders: No HEENT HX ENT Disorders: No Cancer Hx Cancer: No Psychosocial Hx Psychiatric Problems: Yes Behavioral Health Disorders: Anxiety, Bipolar Integumentary HX Skin/Integumentary Disorder: No Blood Transfusions Hx Blood Disorders: No Adverse Reaction to a Blood Tr: No Family Medical History Significant Family History: No Pertinent Family Hx Physical Exam Vital Signs Vital Sign - Last 12Hours 11/11/16 12:57 Temp 97.7 Pulse 97 Resp 22 B/P (MAP) 133/95 Pulse Ox 100 O2 Delivery Room Air Capillary Refill : General Appearance: WD/WN, no apparent distress HEENT: PERRL/EOMI, normal ENT inspection Neck: non-tender, full range of motion Respiratory: normal breath sounds, no respiratory distress, no accessory muscle use Gastrointestinal: normal bowel sounds, non tender, soft Extremities: normal range of motion, non-tender Psychiatric: alert, oriented x 3, other (hysterical, crying, ) Motor/Sensory: no motor deficit, no sensory deficit, no pronator drift Skin: normal color, other (1.5 cm superficial laceration to the medial left eyebrow oriented vertically and extends superiorly up to the forehead. No active bleeding. Small ecchymosis to the medial canthus. There is no hyphema. There is no subconjunctival hemorrhage.) Perry Coma Score Best Eye Response: (4) Open Spontaneously Best Verbal Response: (5) Oriented Best Motor Response: (6) Obeys Commands [place] Total: 15 Laceration Repair : Other Closure Supply: Wound Adhesive Progress/Results/Core Measures Results/Orders My Orders Orders - LATRICIA BROCK APRN Ct Head/Cervical Spine Wo (11/11/16 12:59) Acetaminophen Tablet (Tylenol Tablet) (11/11/16 13:15) Ibuprofen Tablet (Motrin Tablet) (11/11/16 13:15) Medications Given in ED Current Medications Medications Dose Ordered Sig/Chandler Route Start Time Stop Time Status Last Admin Dose Admin Acetaminophen 1,000 mg ONCE ONCE PO 11/11/16 13:15 11/11/16 13:16 DC 11/11/16 13:25 1,000 MG Ibuprofen 800 mg ONCE ONCE PO 11/11/16 13:15 11/11/16 13:16 DC 11/11/16 13:24 800 MG Vital Signs/I&O Vital Sign - Last 12Hours 11/11/16 11/11/16 11/11/16 12:57 13:24 13:25 Temp 97.7 97.7 97.7 Pulse 97 Resp 22 B/P (MAP) 133/95 Pulse Ox 100 O2 Delivery Room Air Departure Impression Impression: Primary Impression: Laceration of forehead Disposition: HOME, SELF-CARE Condition: Stable Departure-Patient Inst. Decision time for Depature: 13:01 Referrals: [facility] (PCP/Family) Primary Care Physician Patient Instructions: Laceration Repair With Glue (DC) Add. Discharge Instructions: 1. Tylenol and Motrin for pain 2. Return to ER for any concerns 3. Allow the glue to follow off on its own in 3-5 days. All discharge instructions reviewed with patient and/or family. Voiced understanding. LATRICIA BROCK APRN Nov 11, 2016 13:01
[2016-11-11] MEDS ORDERED: ACETAMINOPHEN 500 MG TAB (TYLENOL) PO ONE (13:15)
[2016-11-11] MEDS ORDERED: IBUPROFEN 800 MG (MOTRIN) TAB PO ONE (13:15)
--- NOTE | 2016-11-11 13:58 | Diagnostic Imaging Report ---
CLINICAL INDICATION: Patient tripped, fell, and hit face. Patient has laceration between eyes. EXAM: Axial Head CT without IV contrast. Axial CT scan of the cervical spine with sagittal and coronal reformations. COMPARISON: None. FINDINGS: Head CT: There is no evidence of acute cerebral infarct, intracranial hemorrhage, or gross mass effect. There is normal serra-white matter distinction. The brain parenchymal volume appears appropriate for patient's age. There is no significant midline shift or herniation. There is no evidence of hydrocephalus. The basal cisterns are unremarkable. There is mild soft tissue swelling in the left of midline forehead and nasal region. There is no skull or maxillofacial fracture. Otherwise, the skull, extracranial soft tissue, and orbits are unremarkable. The paranasal sinuses are unremarkable. Incidental note of a small amount of trapped fluid within the aerated left petrous apex. Cervical spine CT: There is motion artifact obscuring portions of the C5 through C7 vertebrae. Repeat imaging shows no significant abnormality in those regions. There is no acute cervical spine fracture or dislocation. Intervertebral disc heights are well maintained. There is no gross bony central spinal canal or neural foraminal narrowing. There is no prevertebral soft tissue swelling. The neck soft tissue structures show no significant abnormality. Visualized lung apices are clear. IMPRESSION: 1: There is no evidence of acute intracranial process. 2: There is no acute cervical spine fracture or dislocation. 3: There is mild soft tissue swelling in the left of midline forehead and nasal region. There is no skull or maxillofacial fracture. Dictated by: Dictated on workstation # [id number]
[2016-11-11 14:18] VITALS: BP 128/90
== END 2016-11-11 14:18 | disposition home or self-care (01) ==
LOC: EDUNIT# 12:44 → ER 12:46
DX: S01.81XA Laceration without foreign body of other part of head, initial encounter (principal); W10.9XXA Fall (on) (from) unspecified stairs and steps, initial encounter; Y99.8 Other external cause status
CPT/HCPCS: 70450; 72125

== ENCOUNTER 2016-11-30 19:12 | Emergency (ER) | payer MEDICAID ==
[~2016-11-30] VITALS: Ht 170.2 cm; Wt 52.2 kg
--- NOTE | 2016-11-30 19:23 | ED EENT ---
History of Present Illness General Chief Complaint: Dental Problems/Pain Stated Complaint: JAW PAIN Source: patient Exam Limitations: no limitations History of Present Illness Time seen by provider: 19:22 Initial Comments To ER with reports of left lower jaw pain for 2 weeks and she fell down stairs. She was seen here in the emergency room at that time and had a laceration glued to the left eyebrow. She states that she has a history of TMJ syndrome and has been unable to even put a cheeseburger in her mouth or to contract off of a cigarette due to the pain with opening her mouth. Timing/Duration: abrupt Severity: moderate Location: mouth Associated Symptoms: denies symptoms Allergies and Home Medications Allergies Coded Allergies: haloperidol (Verified Allergy, Unknown, 05/10/16) Home Medications Amoxicillin 500 Mg Capsule, 500 MG PO TID, #21 Prescribed by: LATRICIA BROCK on 11/30/161937 Meloxicam 15 Mg Tablet, #21 (Reported) Naproxen 500 Mg Tablet, 500 MG PO BID, #30 Prescribed by: LATRICIA BROCK on 11/30/161937 Review of Systems Constitutional: see HPI Eyes: No Symptoms Reported Ears: No Symptoms Reported Nose: no symptoms reported Mouth: no symptoms reported Throat: no symptoms reported Respiratory: no symptoms reported Cardiovascular: no symptoms reported Musculoskeletal: no symptoms reported Skin: no symptoms reported Neurological: No Symptoms Reported Hematologic/Lymphatic: No Symptoms Reported Past Frmanyr-Rfndul-Kxxphi Hx Patient Social History Type Used: Cigarettes Recent Foreign Travel: No Contact w/Someone Who Travel: No Recent Hopitalizations: No Immunizations Up To Date Tetanus Booster (TDap): Less than 5yrs Seasonal Allergies Seasonal Allergies: Yes Surgeries HX Surgeries: Yes Surgeries: Eye Surgery Respiratory Hx Respiratory Disorders: No Cardiovascular Hx Cardiac Disorders: No Neurological Hx Neurological Disorders: No 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 System Hx 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 Disorders: 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 Genitourinary Hx Genitourinary Disorders: No Gastrointestinal Hx Gastrointestinal Disorders: No Musculoskeletal Hx Musculoskeletal Disorders: Yes (TMJ) Endocrine Hx Endocrine Disorders: No HEENT HX ENT Disorders: No Cancer Hx Cancer: No Psychosocial Hx Psychiatric Problems: Yes Behavioral Health Disorders: Anxiety, Bipolar Integumentary HX Skin/Integumentary Disorder: No Blood Transfusions Hx Blood Disorders: No Adverse Reaction to a Blood Tr: No Family Medical History Significant Family History: No Pertinent Family Hx Physical Exam Vital Signs Vital Sign - Last 12Hours 11/30/16 19:16 Temp 97.8 Pulse 93 Resp 20 B/P (MAP) 124/82 Pulse Ox 100 O2 Delivery Room Air General Appearance: WD/WN, no apparent distress Eyes: bilateral eye EOMI, bilateral eye PERRL, bilateral eye normal inspection Ears: bilateral ear TM normal, bilateral ear auricle normal, bilateral ear canal normal Nose: normal inspection, No active bleeding Mouth/Throat: other (there are dental caries along the buccal mucosa but there is no fluctuance to suggest a drainable abscess. There is no swelling to the exterior surface of the left mandible. She does have some dental caries to the left molars. ) Neck: non-tender, full range of motion Respiratory: normal breath sounds, no respiratory distress, no accessory muscle use Gastrointestinal: normal bowel sounds, non tender, soft Neurologic/Psychiatric: alert, normal mood/affect, oriented x 3 Skin: normal color, warm/dry Progress/Results/Core Measures Results/Orders My Orders Orders - LATRICIA BROCK APRN Panorex (11/30/16 19:24) Vital Signs/I&O Vital Sign - Last 12Hours 11/30/16 19:16 Temp 97.8 Pulse 93 Resp 20 B/P (MAP) 124/82 Pulse Ox 100 O2 Delivery Room Air Departure Communication Progress Notes Because she does have some dental caries to the left molars I cannot be confident that her pain is not from a dental carry rather than TMJ syndrome. As such, I will treat her with antibiotics. K tracks shows that she had a 10 day supply of Tylenol with Codeine filled by Dr. Fortune yesterday. Also she saw a physician in [place] and had RX for oxycodone on 11/21/16 She states that she does have the Tylenol with Codeine at home but is not taking it. Impression Impression: Primary Impression: Jaw pain Disposition: HOME, SELF-CARE Condition: Stable (m) Departure-Patient Inst. Referrals: [facility] (PCP/Family) Primary Care Physician Patient Instructions: Dental Pain, Temporomandibular Joint (TMJ) Disorders Add. Discharge Instructions: 1. Follow-up with your dentist 2. Return to ER for any concerns 3. All discharge instructions reviewed with patient and/or family. Voiced understanding. Scripts Amoxicillin (Amoxicillin) 500 Mg Capsule 500 MG PO TID, #21 CAP Prov: LATRICIA BROCK APRN 11/30/16 Naproxen (Naprosyn) 500 Mg Tablet 500 MG PO BID, #30 TAB Prov: LATRICIA BROCK APRN 11/30/16 LATRICIA BROCK APRN Nov 30, 2016 19:23
[2016-11-30] MEDS ORDERED: NAPR500T PO (19:38)
[2016-11-30] MEDS ORDERED: AMOX500C2 PO (19:38)
--- NOTE | 2016-11-30 20:17 | Diagnostic Imaging Report ---
INDICATION: Pain in left side of jaw, history of fall. Mandible Panorex performed in a routine fashion. No evidence of fracture or acute bony abnormality is seen. IMPRESSION: Negative mandible Panorex. Dictated by: Dictated on workstation # [id number]
[2016-11-30 20:55] VITALS: BP 124/82
== END 2016-11-30 20:55 | disposition home or self-care (01) ==
LOC: EDUNIT# 19:12 → ER 19:13
DX: R68.84 Jaw pain (principal); F41.9 Anxiety disorder, unspecified; F31.9 Bipolar disorder, unspecified
CPT/HCPCS: 70355; 99282

== ENCOUNTER 2016-12-07 18:28 | Emergency (ER) | payer MEDICAID ==
[~2016-12-07] VITALS: Ht 170.2 cm; Wt 59.0 kg
[~2016-12-07 18:28] MED LIST changes: +AMOX500C2 PO; +NAPR500T PO
[2016-12-07] MEDS ORDERED: CEPH500C PO (18:53)
--- NOTE | 2016-12-07 18:53 | ED Integumentary General ---
General Chief Complaint: Bite-Animal/Human/Insect Stated Complaint: L HAND SPIDER BITE, FATIGUE Nursing Triage Note: ARRIVED VIA AMB TO ROOM 08 WITH COMPLAINTS OF SPIDER BITE TO LEFT HAND THAT SHE NOTICED TODAY. History of Present Illness Time seen by provider: 18:45 Initial Comments Patient reports that she awoke and noticed a bug bite to her fifth knuckle on the left hand. Throughout the day the pain began to get worse, more erythema and swollen. Self treatment including scraping the skin off attempting to squeeze. She did not see a bug and denies seeing spiders in her house recently. She denies spending time outdoors in the last hours. She was treated here recently with amoxicillin, she reports finishing all of this medication. She was recently started on Prozac by her primary care provider. She was started on amoxicillin for a possible tooth abscess on 11/30/16, she reports finishing it last week. Timing/Duration: this morning Severity: mild Location: hands (left) Possible Cause: insect bite Modifying Factors: improves with scratching Associated Symptoms: denies symptoms Allergies and Home Medications Allergies Coded Allergies: haloperidol (Verified Allergy, Unknown, 05/10/16) Home Medications Amoxicillin 500 Mg Capsule, 500 MG PO TID, #21 Prescribed by: LATRICIA BROCK on 11/30/161937 Cephalexin 500 Mg Capsule, 500 MG PO TID, #21 Ref 0 Prescribed by: JAM AVITIA on 12/07/16 185 Meloxicam 15 Mg Tablet, #21 (Reported) Naproxen 500 Mg Tablet, 500 MG PO BID, #30 Prescribed by: LATRICIA BROCK on 11/30/161937 Constitutional: no symptoms reported, see HPI Skin: see HPI, lesions All Other Systems Reviewed Negative Unless Noted: Yes Past Heihvpv-Fopseu-Osznsy Hx Patient Social History Type Used: Cigarettes Recent Foreign Travel: No Contact w/Someone Who Travel: No Recent Infectious Disease Expo: No Recent Hopitalizations: No Immunizations Up To Date Tetanus Booster (TDap): Less than 5yrs Seasonal Allergies Seasonal Allergies: Yes Surgeries HX Surgeries: Yes Surgeries: Eye Surgery Respiratory Hx Respiratory Disorders: No Cardiovascular Hx Cardiac Disorders: No Neurological Hx Neurological Disorders: No 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 System 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 Genitourinary Hx Genitourinary Disorders: No Gastrointestinal Hx Gastrointestinal Disorders: No Musculoskeletal Hx Musculoskeletal Disorders: Yes (TMJ) Endocrine Hx Endocrine Disorders: No HEENT HX ENT Disorders: No Cancer Hx Cancer: No Psychosocial Hx Psychiatric Problems: Yes Behavioral Health Disorders: Anxiety, Bipolar Integumentary HX Skin/Integumentary Disorder: No Blood Transfusions Hx Blood Disorders: No Adverse Reaction to a Blood Tr: No Reviewed Nursing Assessment Reviewed/Agree w Nursing PMH: Yes Family Medical History Significant Family History: No Pertinent Family Hx Physical Exam Vital Signs Vital Sign - Last 12Hours 12/07/16 18:35 Temp 98.0 Pulse 98 Resp 16 B/P (MAP) 144/93 Pulse Ox 98 Capillary Refill : Less Than 3 Seconds General Appearance: WD/WN, no apparent distress Cardiovascular: normal peripheral pulses, regular rate, rhythm Respiratory: chest non-tender, lungs clear Extremities: normal range of motion, normal capillary refill Neurologic/Psychiatric: no motor/sensory deficits, alert, normal mood/affect, oriented x 3 Skin: normal color, warm/dry Skin Problem Location: upper extremities (left hand fifth knuckle) Skin Problem Character: erythema (trace), lesion (small puncture site. No active drainage. Full range of motion of the left fifth finger. No swelling appreciated, however the patient reports it feels swollen to her.), tenderness Lymphatic: no adenopathy Progress/Results/Core Measures Results/Orders Vital Signs/I&O Vital Sign - Last 12Hours 12/07/16 12/07/16 18:35 19:10 Temp 98.0 98.0 Pulse 98 98 Resp 16 16 B/P (MAP) 144/93 Pulse Ox 98 98 Blood Pressure Mean: 110 Departure Impression Impression: Primary Impression: Insect bite Qualified Codes: W57.XXXA - Bitten or stung by nonvenomous insect and other nonvenomous arthropods, initial encounter Disposition: 01 HOME, SELF-CARE Condition: Improved Departure-Patient Inst. Decision time for Depature: 18:55 Referrals: [facility] (PCP/Family) Primary Care Physician Patient Instructions: Insect Bites and Stings (DC) Add. Discharge Instructions: Clean wound to left hand with peroxide and apply triple antibiotic ointment 3 times a day. Take antibiotic as prescribed. Apply ice to hand as needed. No use of heat to area. Follow-up with Dr. Fortune if no improvement in symptoms Return to emergency department for fever greater than 101, increased redness, discolored drainage or pain at wound site, new injuries or problems. All discharge instructions reviewed with patient and/or family. Voiced understanding. Scripts Cephalexin (Cephalexin) 500 Mg Capsule 500 MG PO TID, #21 CAP 0 Refills Prov: JAM AVITIA 12/07/16 Copy Copies To 1: NGOZI FORTUNE MD, AMY ARNP Dec 07, 2016 18:53
[2016-12-07 19:10] VITALS: BP 144/93
== END 2016-12-07 19:10 | disposition home or self-care (01) ==
LOC: EDUNIT# 18:28 → ER 18:29
DX: S60.467A Insect bite (nonvenomous) of left little finger, initial encounter (principal); F41.9 Anxiety disorder, unspecified; F31.9 Bipolar disorder, unspecified; W57.XXXA Bitten or stung by nonvenomous insect and other nonvenomous arthropods, initial encounter
CPT/HCPCS: 99281

== ENCOUNTER 2017-01-06 10:04 | Emergency (ER) | payer MEDICAID ==
[~2017-01-06] VITALS: Ht 170.2 cm; Wt 59.0 kg
[~2017-01-06 10:04] MED LIST changes: +CEPH500C PO; -NAPR500T3 PO; +NAPR500T4 PO
[2017-01-06] MEDS ORDERED: LIDOCAINE 1% INJ 20 ML (XYLOCAINE) VIAL INJ ONE (12:15)
--- NOTE | 2017-01-06 12:28 | ED Integumentary General ---
General Chief Complaint: Skin/Wound Problems Stated Complaint: SPIDER BITE RT LEG Nursing Triage Note: Pt reports "spider bite" to R posterior thigh. Pt reports she noticed a "pimple " yesterday and she tried to pop it. Pt reports area has tripled in size since yesterday. Source: patient, family, spouse Exam Limitations: no limitations History of Present Illness Time seen by provider: 11:45 Initial Comments Patient presents ER with a chief complaint of a spider bite on the back of her right leg that occurred sometime yesterday afternoon. She has not been seen for this yet. No fevers chills nausea vomiting area or spreading rash. Just some redness swelling and pain at the site. She does not have a history of hidradenitis of the or frequent abscesses. No recent antibiotics use and no allergies to have bites. Allergies and Home Medications Allergies Coded Allergies: haloperidol (Verified Allergy, Unknown, 05/10/16) Home Medications Amoxicillin 500 Mg Capsule, 500 MG PO TID, #21 Prescribed by: LATRICIA BROCK on 11/30/161937 Cephalexin 500 Mg Capsule, 500 MG PO TID, #21 Ref 0 Prescribed by: JAM AVITIA on 12/07/161852 Meloxicam 15 Mg Tablet, #21 (Reported) Naproxen 500 Mg Tablet, 500 MG PO BID, #30 Prescribed by: LATRICIA BROCK on 11/30/161937 Constitutional: see HPI, No chills, No diaphoresis, No fever, No malaise Respiratory: No cough, No short of breath Cardiovascular: No chest pain, No palpitations Gastrointestinal: No abdominal pain, No constipation, No nausea Genitourinary: No discharge, No 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 : 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) Skin: see HPI, No pruritus, No rash Past Zeislxh-Okhuwf-Wjuqnp Hx Patient Social History Alcohol Beverage of Choice: Beer Type Used: Cigarettes Recent Foreign Travel: No Contact w/Someone Who Travel: No Recent Infectious Disease Expo: No Recent Hopitalizations: No Immunizations Up To Date Tetanus Booster (TDap): Less than 5yrs Seasonal Allergies Seasonal Allergies: Yes Surgeries History of Surgeries: Yes (EYE) Surgeries: Eye Surgery Respiratory History of Respiratory Disorde: No Cardiovascular History of Cardiac Disorders: No Neurological History of Neurological Disord: No 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 System 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 Genitourinary History of Genitourinary Disor: No Gastrointestinal History of Gastrointestinal Di: No 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) Endocrine History of Endocrine Disorders: No HEENT History of HEENT Disorders: No Cancer History of Cancer: No Psychosocial History of Psychiatric Problem: Yes Behavioral Health Disorders: Anxiety, Bipolar Integumentary History of Skin or Integumenta: No Blood Transfusions History of Blood Disorders: No Adverse Reaction to a Blood Tr: No Family Medical History Significant Family History: No Pertinent Family Hx Physical Exam Vital Signs Vital Sign - Last 12Hours 01/06/17 11:20 Temp 97.6 Pulse 78 Resp 18 B/P (MAP) 99/63 Pulse Ox 98 O2 Delivery Room Air Capillary Refill : Less Than 3 Seconds General Appearance: WD/WN, no apparent distress HEENT: PERRL/EOMI, pharynx normal Neck: non-tender, normal inspection Cardiovascular: normal peripheral pulses, regular rate, rhythm Respiratory: chest non-tender, lungs clear Gastrointestinal: non tender, soft Back: normal inspection, no vertebral tenderness Extremities: normal capillary refill, other (1 x 2 cm area of induration and redness over the distal posterior side of the thigh with a black punctate.no drainage and very tender.) Neurologic/Psychiatric: alert, oriented x 3 I&D : Blade Size: 11 I & D Procedure: betadine prep (I'll call) Progress Site was infiltrated with 4 cc of 1% lidocaine without epinephrine and then the patient was ascertained to be numb we cleaned with Betadine and alcohol and then used an 11 blade to make a cross rosales incision to get a small amount of serosanguineous drainage out. Patient tolerated procedure okay. Site was probed with a Q-tip no purulence produced. Progress/Results/Core Measures Results/Orders My Orders Orders - FANNY HANCOCK Lidocaine 1% Injection (Xylocaine 1% Inj (01/06/17 12:15) Medications Given in ED Current Medications Medications Dose Ordered Sig/Chandler Route Start Time Stop Time Status Last Admin Dose Admin Lidocaine HCl 20 ml ONCE ONCE INJ 01/06/17 12:15 01/06/17 12:16 DC 01/06/17 12:13 20 ML Vital Signs/I&O Vital Sign - Last 12Hours 01/06/17 11:20 Temp 97.6 Pulse 78 Resp 18 B/P (MAP) 99/63 Pulse Ox 98 O2 Delivery Room Air Blood Pressure Mean: 75 Departure Impression Impression: Primary Impression: Abscess Disposition: 01 HOME, SELF-CARE Condition: Stable Departure-Patient Inst. Decision time for Depature: 12:28 Referrals: [facility] (PCP/Family) Primary Care Physician Patient Instructions: Abscess Incision and Drainage (DC) Add. Discharge Instructions: Keep the site clean with soap and water in the shower and as often as necessary. Change the light dressing as needed. The wound should heal over the next 48 hours and then it would be okay to submerse herself as in a bath or swimming after that time. Take the antibiotics as directed twice a day by mouth. Get some probiotics to be taken twice a day or use yogurt with active culture such as [place] yogurt twice a day to avoid the side effects to antibiotics. If you begin to experience nausea, fevers, chills, worsening redness rash or drainage from the wound then you should show to your primary care physician or you may return to the ER which ever is more appropriate. All discharge instructions reviewed with patient and/or family. Voiced understanding. Scripts Sulfamethoxazole/Trimethoprim (Bactrim Ds Tablet) 1 Each Tablet 1 EACH PO BID for 7 Days, #14 TAB 0 Refills Prov: FANNY HANCOCK 01/06/17 Copy Copies To 1: BRIAN SAVAGE DO FANNY HANCOCK Jan 06, 2017 12:28
[2017-01-06] MEDS ORDERED: SULF1TAB35 PO (12:30)
[2017-01-06 12:49] VITALS: BP 99/63
== END 2017-01-06 12:49 | disposition home or self-care (01) ==
LOC: EDUNIT# 10:04 → ER 10:07
DX: L02.415 Cutaneous abscess of right lower limb (principal); F31.9 Bipolar disorder, unspecified; F41.9 Anxiety disorder, unspecified; Z97.5 Presence of (intrauterine) contraceptive device

== ENCOUNTER 2017-06-12 21:11 | Emergency (ER) | payer MEDICAID ==
[~2017-06-12] VITALS: Ht 170.2 cm; Wt 60.3 kg
[~2017-06-12 21:11] MED LIST changes: +ACHD5005 PO; -HYDR-3812 PO; +NAPR-1071 PO; -NAPR500T PO
[2017-06-12 22:38] LABS: BILIRUBIN,URINE NEGATIVE (NEGATIVE); CLARITY,URINE SLIGHTLY CLOUDY; COLOR,URINE YELLOW; GLUCOSE, URINE (UA) NEGATIVE (NEGATIVE); KETONES,URINE NEGATIVE (NEGATIVE); LEUKOCYTE ESTERASE ,URINE 2+ (NEGATIVE); NITRITE,URINE NEGATIVE (NEGATIVE); PH,URINE 8 (5-9); PROTEIN,URINE NEGATIVE (NEGATIVE); UROBILINOGEN,URINE NORMAL (NORMAL)
[2017-06-12] MEDS ORDERED: LIDOCAINE PF 1% 5 ML (XYLOCAINE) AMP ONE (22:54)
[2017-06-12] MEDS ORDERED: cefTRIAXone 1 GM (ROCEPHIN) VIAL IM ONE (23:00)
[2017-06-12] MEDS ORDERED: KETO10TA PO (23:00)
[2017-06-12] MEDS ORDERED: METR500T PO (23:00)
[2017-06-12] MEDS ORDERED: KETOROLAC 60 MG/2 ML VIAL IM ONE (23:00)
[2017-06-12] MEDS ORDERED: LIDOCAINE 1% INJ 20 ML (XYLOCAINE) VIAL INJ ONE (23:00)
--- NOTE | 2017-06-12 23:01 | ED GU-Female ---
General Chief Complaint: Abdominal/GI Problems Stated Complaint: CRAMPING Nursing Triage Note: pt states abdominal pain started after intercourse. Nursing Sepsis Screen: No Definite Risk Source: patient History of Present Illness Date Seen by Provider: Jun 12, 2017 Time Seen by Provider: 22:28 Initial Comments PT STATES SHE HAS HAD PELVIC CRAMPING AFTER NORMAL VAGINAL INTERCOURSE TODAY AROUND 1600 HAD SOME MINOR SPOTTING X 1 EARLIER. BUT NO BLEEDING NOW STATES SHE FEELS ALOT OF PRESSURE IN VAGINAL AND RECTAL PRESSURE NO NAUSEA/VOMITING NO FEVER NO PROBLEMS URINATING NO HISTORY OF SIMILAR PCP: [facility] [place]ergies and Home Medications Allergies Coded Allergies: haloperidol (Verified Allergy, Unknown, 05/10/16) Home Medications Amoxicillin 500 Mg Capsule, 500 MG PO TID, #21 Prescribed by: LATRICIA BROCK on 11/30/16 1938 Cephalexin 500 Mg Capsule, 500 MG PO TID, #21 Ref 0 Prescribed by: JAM AVITIA on 12/07/16 1853 Ketorolac Tromethamine 10 Mg Tablet, 10 MG PO Q6H, #15 PT RECEIVED TORADOL INJECTION IN ER WITHOUT PROBLEMS Prescribed by: CINDI ALBRIGHT on 06/12/17 2300 Meloxicam 15 Mg Tablet, #21 (Reported) Metronidazole 500 Mg Tablet, 500 MG PO QID, #40 Prescribed by: CINDI ALBRIGHT on 06/12/17 2300 Naproxen 500 Mg Tablet, 500 MG PO BID, #30 Prescribed by: LATRICIA BROCK on 11/30/16 1938 Sulfamethoxazole/Trimethoprim 1 Each Tablet, 1 EACH PO BID for 7 Days, #14 Ref 0 Prescribed by: FANNY HANCOCK on 01/06/17 1230 Constitutional: no symptoms reported Respiratory: no symptoms reported Cardiovascular: no symptoms reported Gastrointestinal: see HPI Genitourinary: see HPI : No (IUD IN PLACE) LMP: May 23, 2017 Musculoskeletal: no symptoms reported Skin: no symptoms reported Psychiatric/Neurological: No Symptoms Reported Past Gnwiyux-Burnfv-Rzlezk Hx Patient Social History Alcohol Use: Occasionally Uses Alcohol Beverage of Choice: Beer Recreational Drug Use: No Smoking Status: Current Everyday Smoker Type Used: Cigarettes Recent Foreign Travel: No Contact w/Someone Who Travel: No Recent Infectious Disease Expo: No Recent Hopitalizations: No Immunizations Up To Date Tetanus Booster (TDap): Less than 5yrs Seasonal Allergies Seasonal Allergies: Yes Surgeries History of Surgeries: Yes (EYE) Surgeries: Eye Surgery Respiratory History of Respiratory Disorde: No Cardiovascular History of Cardiac Disorders: No Neurological History of Neurological Disord: No 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 System : No Hx 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 Disorders: No 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 Genitourinary History of Genitourinary Disor: No Gastrointestinal History of Gastrointestinal Di: No 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) Endocrine History of Endocrine Disorders: No HEENT History of HEENT Disorders: Yes (TMJ) Cancer History of Cancer: No Psychosocial History of Psychiatric Problem: Yes Behavioral Health Disorders: Anxiety, Bipolar Integumentary History of Skin or Integumenta: No Blood Transfusions History of Blood Disorders: No Adverse Reaction to a Blood Tr: No Family Medical History Significant Family History: No Pertinent Family Hx Physical Exam Vital Signs Vital Signs - First Documented 06/12/17 21:50 Temp 98.3 Pulse 82 Resp 20 B/P (MAP) 121/89 (100) Pulse Ox 99 O2 Delivery Room Air Capillary Refill : Less Than 3 Seconds General Appearance: WD/WN, no apparent distress, thin Cardiovascular: regular rate, rhythm, no murmur Respiratory: normal breath sounds, no respiratory distress, respiratory distress Gastrointestinal: normal bowel sounds, soft, tenderness (SUPRAPUBIC) Pelvic: normal external exam, discharge (WHITE), tender w/ cervical motion, No tender adnexa, tender uterus Back: normal inspection, no CVA tenderness Extremities: normal inspection 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, no motor/sensory deficits, alert, normal mood/affect, oriented x 3 Skin: normal color, warm/dry Progress/Results/Core Measures Suspected Sepsis Recent Fever Within 48 Hours: No Infection Criteria Present: None New/Unexplained Altered Menta: No Sepsis Screen: No Definite Risk Sepsis Diagnosis: SIRS Temperature:98.3 Pulse: 82 Respiratory Rate: 20 Blood Pressure 121 /89 Mean: 100 Results/Orders Lab Results Laboratory Tests Test 06/12/17 22:05 06/12/17 22:45 Range/Units Urine Color YELLOW Urine Clarity SLIGHTLY CLOUDY Urine pH 8 5-9 Urine Specific [place] 1.015 L 1.016-1.022 Urine Protein NEGATIVE NEGATIVE Urine Glucose (UA) NEGATIVE NEGATIVE Urine Ketones NEGATIVE NEGATIVE Urine Nitrite NEGATIVE NEGATIVE Urine Bilirubin NEGATIVE NEGATIVE Urine Urobilinogen NORMAL NORMAL MG/DL Urine Leukocyte Esterase 2+ H NEGATIVE Urine RBC (Auto) NEGATIVE NEGATIVE Urine RBC NONE /HPF Urine WBC 5-10 H /HPF Urine Squamous Epithelial Cells 2-5 /HPF Urine Crystals PRESENT H /LPF Urine Amorphous Sediment LARGE AUREA PHOSPHATE H /LPF Urine Bacteria FEW H /HPF Urine Casts NONE /LPF Urine Mucus SMALL H /LPF Urine Culture Indicated YES My Orders Orders - CINDI ALBRIGHT DO Urine Bedside (06/12/17 22:29) Ua Culture If Indicated (06/12/17 22:29) Neisseria Gonorrhea Dna (06/12/17 22:29) Chlam Dna Probe (06/12/17 22:29) Genital Culture (06/12/17 22:29) Wet Prep (06/12/17 22:29) Ariadna Prep (06/12/17 22:29) Ceftriaxone Injection (Rocephin Injectio (06/12/17 23:00) Ketorolac Injection (Toradol Injection) (06/12/17 23:00) Lidocaine 1% Injection (Xylocaine 1% Inj (06/12/17 23:00) Lidocaine Pf 1% 5 Ml Injection (Xylocain (06/12/17 22:54) Urine Culture (06/12/17 22:05) Medications Given in ED Current Medications Medications Dose Ordered Sig/Chandler Route Start Time Stop Time Status Last Admin Dose Admin Ceftriaxone Sodium 1,000 mg ONCE ONCE IM 06/12/17 23:00 06/12/17 23:01 DC 06/12/17 23:07 1,000 MG Ketorolac Tromethamine 60 mg ONCE ONCE IM 06/12/17 23:00 06/12/17 23:01 DC 06/12/17 23:06 60 MG Lidocaine HCl 5 ml STK-MED ONCE .ROUTE 06/12/17 22:54 06/12/17 22:57 DC 06/12/17 23:07 5 ML Vital Signs/I&O Vital Sign - Last 12Hours 06/12/17 06/12/17 21:50 23:20 Temp 98.3 98.3 Pulse 82 82 Resp 20 20 B/P (MAP) 121/89 (100) Pulse Ox 99 99 O2 Delivery Room Air Capillary Refill : Less Than 3 Seconds Blood Pressure Mean: 100 Point of Care Testing Urine -Bedside: Negative Departure Impression Impression: Primary Impression: PID (acute pelvic inflammatory disease) Additional Impression: Urinary tract infection Disposition: 01 HOME, SELF-CARE Condition: Stable Departure-Patient Inst. Referrals: [facility] (PCP/Family) Primary Care Physician Patient Instructions: Pelvic Inflammatory Disease (DC), Urinary Tract Infection , Adult (DC) Add. Discharge Instructions: PELVIC REST-NOTHING IN VAGINA--NO TAMPONS, DOUCHING OR INTERCOURSE FOLLOW UP WITH YOUR DR IN 3-4 DAYS FOR FURTHER CARE All discharge instructions reviewed with patient and/or family. Voiced understanding. Scripts Ketorolac Tromethamine (Ketorolac Tromethamine) 10 Mg Tablet 10 MG PO Q6H for Pain, #15 TAB PT RECEIVED TORADOL INJECTION IN ER WITHOUT PROBLEMS Prov: CINDI ALBRIGHT DO 06/12/17 Metronidazole (Flagyl) 500 Mg Tablet 500 MG PO QID for FOR INFECTION, #40 TAB Prov: CINDI ALBRIGHT DO 06/12/17 CINDI ALBRIGHT DO Jun 12, 2017 23:00
[2017-06-12 23:12] LABS: BACTERIA,URINE FEW /HPF
[2017-06-12 23:13] LABS: AMORPHOUS SEDIMENT,UR LARGE AMOR PHOSPHATE /LPF
[2017-06-12 23:20] VITALS: BP 121/89
== END 2017-06-12 23:20 | disposition home or self-care (01) ==
LOC: EDUNIT# 21:11 → ER 21:13
DX: N73.9 Female pelvic inflammatory disease, unspecified (principal); N39.0 Urinary tract infection, site not specified; F41.9 Anxiety disorder, unspecified; F31.9 Bipolar disorder, unspecified; F17.210 Nicotine dependence, cigarettes, uncomplicated; Z88.8 Allergy status to other drugs, medicaments and biological substances; Z97.5 Presence of (intrauterine) contraceptive device
CPT/HCPCS: 36415; 81000; 84703; 87070; 87088; 87210; 87220; 87491; 87591; 96372; 99284

== ENCOUNTER 2017-07-07 10:00 | Emergency (ER) | payer MEDICAID ==
[~2017-07-07] VITALS: Ht 170.2 cm; Wt 61.2 kg
[~2017-07-07 10:00] MED LIST changes: +KETO10TA PO; +METR500T PO; +NAPR-915 PO; -NAPR500T4 PO
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
--- NOTE | 2017-07-07 11:31 | Diagnostic Imaging Report ---
INDICATION: Right-sided pain. TIME OF EXAM: 10:51 AM FINDINGS: [facility]ore[facility] exam was performed. Multiple dental extractions and restorations are seen. No definite mandibular fracture is seen. No periapical lucency is seen. IMPRESSION: No acute abnormality is identified. Dictated by: Dictated on workstation # [id number]
[2017-07-07] MEDS ORDERED: fentaNYL INJECTION 100 MCG/2 ML AMP IM PRN (11:45)
[2017-07-07 11:53] VITALS: BP 139/111
== END 2017-07-07 11:53 | disposition home or self-care (01) ==
LOC: EDUNIT# 10:00 → ER 10:02
DX: K08.89 Other specified disorders of teeth and supporting structures (principal); F41.9 Anxiety disorder, unspecified; F32.9 Major depressive disorder, single episode, unspecified; F17.210 Nicotine dependence, cigarettes, uncomplicated; Z88.8 Allergy status to other drugs, medicaments and biological substances
CPT/HCPCS: 70355; 96372

== ENCOUNTER 2017-10-30 15:21 | Emergency (ER) | payer MEDICAID ==
[~2017-10-30] VITALS: Ht 170.2 cm; Wt 56.7 kg
[~2017-10-30 15:21] MED LIST changes: +HYDR-3812 PO
--- OUTSIDE RECORDS SUMMARY | 2017-10-30 15:26 | XMS REPORT ---
Author Author BARNEY BILLINGS Organization [facility] Address [address] [place] [address] Care Team Providers Care Trim Machine Adjuster Name Role Phone BARNEY BILLINGS Unavailable PROBLEMS Type Condition ICD9-CM Code [id number] Code Onset Dates Condition Status SNOMED Code Problem Grief F43.20 Active 86058926 Problem Anxiety and depression F41.8 Active 280188674 Problem Acute stress reaction F43.0 Active 17480294 Problem Anxiety F41.9 Active 84173308 ALLERGIES Substance Reaction Event Type Date Status Haldol dizziness Drug Allergy Oct, Active ENCOUNTERS Encounter Location Date Diagnosis [facility] [address] [place] [id number] Jun, Dental examination Z01.20 [facility] [id number] [place] [address] Dec, Acute stress reaction F43.0 [facility] [id number] [place] [address] Nov, [facility] [address] [place] [address] Oct, [facility] [id number] [place] [address] Oct, Acute stress reaction F43.0 ; Jaw pain R68.84 and Anxiety F41.9 [facility] [id number] [place] [address] Oct, Grief F43.20 and Anxiety and depression F41.8 [facility] [address] [id number] [id number] Jul, Dental examination Z01.20 [place] [address] [id number] [id number] Oct, Anxiety associated with depression F41.8 ; Stress F43.9 and Folliculitis L73.9 [facility] [address] [id number] [place] [id number] Sep, [facility] [address] [id number] [id number] Sep, [facility] [address] [facility] [id number] [address] Jan, [facility] [address] [facility] [id number][place] [address] Jan, [facility] [address] [facility] [id number] [address] Apr, [facility] [address] [facility] [id number][place] [address] Apr, IMMUNIZATIONS No Known Immunizations SOCIAL HISTORY Never Assessed REASON FOR VISIT [facility] Contact PLAN OF CARE Activity Details Follow Up prn Reason:grief, anxiety, depression VITAL SIGNS MEDICATIONS No Known Medications RESULTS No Results PROCEDURES Procedure Date Ordered Result Body Site Psych diagnostic evaluation, new patient November 29, 2016 INSTRUCTIONS MEDICATIONS ADMINISTERED No Known Medications MEDICAL (GENERAL) HISTORY Type Description Date Medical History anxiety Medical History depression Medical History bipolar disorder (borderline)- psychiatrist Medical History personality disorder (borderline) Medical History Shingles Surgical History had surgery on both eyes-was born cross eyed age 1 Hospitalization History Hospitalization for surgery Hospitalization History childbirth
--- OUTSIDE RECORDS SUMMARY | 2017-10-30 15:26 | XMS REPORT ---
Author Author NGOZI MEDINA Organization [facility] Address [address] [place] [address] Care Team Providers Care Critical Care Nurse Practitioner Name Role Phone NGOZI MEDINA Unavailable PROBLEMS Type Condition ICD9-CM Code ZFC34-JP Code Onset Dates Condition Status SNOMED Code Problem Grief F43.20 Active 05571725 Problem Anxiety and depression F41.8 Active 774307418 Problem Acute stress reaction F43.0 Active 87423481 Problem Anxiety F41.9 Active 70430306 ALLERGIES Substance Reaction Event Type Date Status Haldol dizziness Drug Allergy Oct, Active ENCOUNTERS Encounter Location Date Diagnosis [facility] [address] [address] August, [facility] [address] [id number] Jun, Dental examination Z01.20 [facility] [address] [address] Dec, Acute stress reaction F43.0 [facility] [address] [address] Nov, [facility] [address] [address] Oct, [facility] [address] [address] Oct, Acute stress reaction F43.0 ; Jaw pain R68.84 and Anxiety F41.9 [facility] [address] [address] Oct, Grief F43.20 and Anxiety and depression F41.8 [facility] [address] [id number] Jul, Dental examination Z01.20 [facility] [address] [place] [address] AVE [id number] [id number] Oct, Anxiety associated with depression F41.8 ; Stress F43.9 and Folliculitis L73.9 [facility] [address] [place] [address] A[address] [id number] [place] [id number] Sep, [facility] [address] [id number] LA[place] [id number] Sep, [facility] [address] [facility] [id number] [address] Jan, [facility] [address]65100[place] [address] Jan, [facility] [address]65[address] [address] Apr, [facility] [address] [id number] [address] Apr, IMMUNIZATIONS No Known Immunizations SOCIAL HISTORY Never Assessed REASON FOR VISIT Establish Care-Fell down the stairs about 3 weeks ago, was seen in the ED for this, they told her she needs to get a pcp to have a referral for maxillofacial surgery-Erica, Concerns about depression, moriah brother is dying from renal failure, has met with Basilio Matos previously, high scoring depression screening PLAN OF CARE Activity Details Follow Up prn Reason: VITAL SIGNS Height 64.8 in 2016-11-29 Weight 122.0 lbs 2016-11-29 Temperature 97.6 degrees Fahrenheit 2016-11-29 Heart Rate 110 bpm 2016-11-29 Respiratory Rate 18 2016-11-29 Oximetry 100 % 2016-11-29 BMI 20.43 kg/m2 2016-11-29 Blood pressure systolic 108 mmHg 2016-11-29 Blood pressure diastolic 76 mmHg 2016-11-29 MEDICATIONS Medication Instructions Dosage Frequency Start Date End Date Duration Status Acetaminophen-Codeine #3 300-30 MG Orally every 6 hrs, PRN 1 tablet as needed Oct, Active Prozac 20 mg Orally Once a day x 2 weeks then increase to 2 capsule daily 1 capsule in the morning Oct, 30 day(s) Active RESULTS No Results PROCEDURES Procedure Date Ordered Result Body Site MEASURE BLOOD OXYGEN LEVEL November 29, 2016 INSTRUCTIONS MEDICATIONS ADMINISTERED No Known Medications MEDICAL (GENERAL) HISTORY Type Description Date Medical History anxiety Medical History depression Medical History bipolar disorder (borderline)- psychiatrist Medical History personality disorder (borderline) Medical History Shingles Surgical History had surgery on both eyes-was born cross eyed age 1 Hospitalization History Hospitalization for surgery Hospitalization History childbirth
--- OUTSIDE RECORDS SUMMARY | 2017-10-30 15:26 | XMS REPORT ---
Author Author NGOZI MEDINA Organization [facility] Address [address] [place] [address] Care Team Providers Care Tube Coater Name Role Phone NGOZI MEDINA Unavailable PROBLEMS Type Condition ICD9-CM Code [id number] Code Onset Dates Condition Status SNOMED Code Problem Grief F43.20 Active 29570754 Problem Anxiety and depression F41.8 Active 683809781 Problem Acute stress reaction F43.0 Active 24599074 Problem Anxiety F41.9 Active 88168111 ALLERGIES No Information ENCOUNTERS Encounter Location Date Diagnosis [place] [id number] [address] August, [facility] [address] [id number] Jun, Dental examination Z01.20 [facility] [address] [address] Dec, Acute stress reaction F43.0 [facility] [address] [address] Nov, [facility] [address] [address] Oct, [facility] [address] [address] Oct, Acute stress reaction F43.0 ; Jaw pain R68.84 and Anxiety F41.9 [facility] [address] [address] Oct, Grief F43.20 and Anxiety and depression F41.8 [facility] [id number] [place] [id number] Jul, [facility] Z01.20 [facility] [address] [place] [address] AVE [id number] [id number] Oct, Anxiety associated with depression F41.8 ; Stress F43.9 and Folliculitis L73.9 [facility] [address] [facility] [address] [id number] [place] [id number] Sep, [address] [id number][place] [id number] Sep, [facility] [address] [address] Jan, [facility] [address]65100[place], [place] [address] Jan, [facility] [address]65100[place], [place] [address] Apr, [facility] [address]65100[place], [place] [address] Apr, IMMUNIZATIONS No Known Immunizations SOCIAL HISTORY Never Assessed REASON FOR VISIT med not helping PLAN OF CARE VITAL SIGNS MEDICATIONS Unknown Medications RESULTS No Results PROCEDURES No Known procedures INSTRUCTIONS MEDICATIONS ADMINISTERED No Known Medications MEDICAL (GENERAL) HISTORY Type Description Date Medical History anxiety Medical History depression Medical History bipolar disorder (borderline)- psychiatrist Medical History personality disorder (borderline) Medical History Shingles Surgical History had surgery on both eyes-was born cross eyed age 1 Hospitalization History Hospitalization for surgery Hospitalization History childbirth
[2017-10-30 15:50] VITALS: BP 112/80
--- NOTE | 2017-10-30 16:41 | ED EENT ---
History of Present Illness General Chief Complaint: Oral/Throat Problems Stated Complaint: THROAT PAIN Nursing Triage Note: ARRIVED VIA AMB TO ROOM 05 WITH COMPLAINTS OF SORETHROAT STARTING YESTERDAY. Source: patient Exam Limitations: no limitations History of Present Illness Date Seen by Provider: Oct 30, 2017 Time Seen by Provider: 16:37 Initial Comments The patient is a 27-year-old female. She presents with complaints of a severe sore throat. There is also some pain in her right ear. She is not aware of fever. There have been no chills or sweats. No one at home is sick. Timing/Duration: yesterday Severity: moderate Allergies and Home Medications Allergies Coded Allergies: haloperidol (Verified Allergy, Unknown, 05/10/16) Home Medications Amoxicillin 500 Mg Capsule, 500 MG PO TID Prescribed by: LATRICIA BROCK on 11/30/161937 Patient Home Medication List Home Medication List Reviewed: Yes Review of Systems Constitutional: see HPI Eyes: No Symptoms Reported Ears: Other (right ear pain) Nose: no symptoms reported Mouth: no symptoms reported Throat: painful swallowing Respiratory: no symptoms reported Cardiovascular: no symptoms reported Musculoskeletal: no symptoms reported Skin: no symptoms reported Neurological: No Symptoms Reported Immunological/Allergic: no symptoms reported Past Omsykze-Qqvhtp-Ywteof Hx Patient Social History Alcohol Use: Denies Use Alcohol Beverage of Choice: Beer Recreational Drug Use: No Smoking Status: Current Everyday Smoker Type Used: Cigarettes 2nd Hand Smoke Exposure: Yes Recent Foreign Travel: No Contact w/Someone Who Travel: No Recent Infectious Disease Expo: No Recent Hopitalizations: No Immunizations Up To Date Tetanus Booster (TDap): Less than 5yrs Seasonal Allergies Seasonal Allergies: Yes Past Medical History Surgeries: Yes (EYE) Eye Surgery Respiratory: No Cardiac: No Neurological: No 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 Disorders: No 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 Genitourinary: No Gastrointestinal: No Musculoskeletal: Yes (TMJ) Endocrine: No HEENT: Yes (TMJ) Cancer: No Psychosocial: Yes Anxiety, Bipolar Integumentary: No Blood Disorders: No Adverse Reaction/Blood Tranf: No Family Medical History No Pertinent Family Hx Physical Exam Vital Signs General Appearance: no apparent distress Ears: right ear TM normal Nose: normal inspection Mouth/Throat: other (minimal erythema) Neck: non-tender, full range of motion, supple, normal inspection Cardiovascular: normal peripheral pulses, regular rate, rhythm, no edema, no gallop, no JVD, no murmur Gastrointestinal: normal bowel sounds, non tender, soft, no organomegaly, no pulsatile mass, tenderness, spleenomegaly Neurologic/Psychiatric: director non 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 Decision time for Depature: 00:00 Referrals: NO,LOCAL PHYSICIAN (PCP) Primary Care Physician ANDRÉS ALMEIDA MD Oct 30, 2017 16:41
== END 2017-10-30 16:38 | disposition left against medical advice (07) ==
LOC: EDUNIT# 15:21 → ER 15:23
DX: R07.0 Pain in throat (principal)
CPT/HCPCS: 99281

== ENCOUNTER → 2018-05-05 | Emergency (ER) | payer MEDICAID | LOC: ER 18:19 ==

== ENCOUNTER 2018-05-25 10:09 | Emergency (ER) | payer MEDICAID | END 2018-05-25 10:39 | disposition home or self-care (01) | LOC: ER 10:09 ==

== ENCOUNTER 2018-07-02 09:01 | Emergency (ER) | payer MEDICAID ==
[~2018-07-02] VITALS: Ht 170.2 cm; Wt 61.2 kg
--- NOTE | 2018-07-02 09:33 | ED Integumentary General ---
General Chief Complaint: Skin/Wound Problems Stated Complaint: SORE ON FACE Nursing Triage Note: PT STATES HAS WOUND ON L CHEEK FOR 2 DAYS DRAINING, PAINFUL AND STATES HAD FEVER LAST PM Source: patient Exam Limitations: no limitations History of Present Illness Date Seen by Provider: Jul 02, 2018 Time Seen by Provider: 09:29 Initial Comments This 28-year-old white female presents with a MRSA abscess to the right cheek has been present for the last 2 days. She states it is quite painful. It is been draining. The patient denies associated headache, photophobia, difficulty swallowing, stiff neck, other MRSA abscesses currently, or the current use of antibiotics. There are family members that have MRSA currently. Allergies and Home Medications Allergies Coded Allergies: haloperidol (Verified Allergy, Unknown, 05/10/16) Home Medications Amoxicillin 500 Mg Capsule, 500 MG PO TID Prescribed by: LATRICIA BROCK on 11/30/16 1938 Amoxicillin 500 Mg Capsule, 500 MG PO TID Prescribed by: FANNY HANCOCK on 05/25/18 1034 Hydrocodone Bit/Acetaminophen 1 Tab Tab, 1 EACH PO Q4-6HR PRN for PAIN-MODERATE Prescribed by: MARIBELL FARFAN on 05/05/18 1849 Patient Home Medication List Home Medication List Reviewed: Yes Review of Systems Review of Systems Constitutional: No chills; fever EENTM: No ear pain, No mouth swelling, No throat pain Respiratory: No cough Cardiovascular: No chest pain Gastrointestinal: No abdominal pain Musculoskeletal: no symptoms reported Skin: no symptoms reported Psychiatric/Neurological: No Symptoms Reported Endocrine: No Symptoms Reported Past Gzhwdiq-Muypcu-Mcxcyo Hx Past Med/Social Hx: Reviewed Nursing Past Med/Soc Hx Patient Social History Alcohol Use: Denies Use Alcohol Beverage of Choice: Beer Recreational Drug Use: No Smoking Status: Current Everyday Smoker Type Used: Cigarettes 2nd Hand Smoke Exposure: Yes Recent Foreign Travel: No Contact w/Someone Who Travel: No Recent Infectious Disease Expo: No Recent Hopitalizations: No Immunizations Up To Date Tetanus Booster (TDap): Less than 5yrs Seasonal Allergies Seasonal Allergies: Yes Past Medical History Surgeries: Yes (EYE) Eye Surgery Respiratory: No Cardiac: No Neurological: No 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 Disorders: No 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 Genitourinary: No Gastrointestinal: No Musculoskeletal: Yes (TMJ) Endocrine: No HEENT: Yes (TMJ) Cancer: No Psychosocial: Yes Anxiety, Bipolar Integumentary: No Blood Disorders: No Adverse Reaction/Blood Tranf: No Family Medical History No Pertinent Family Hx Physical Exam Vital Signs Vital Signs - First Documented 07/02/18 09:21 Temp 97.5 Pulse 84 Resp 18 B/P (MAP) 138/100 (113) Pulse Ox 99 Capillary Refill : Less Than 3 Seconds General Appearance: WD/WN, mild distress HEENT: other (there is a 1/2 cm abscess to the right cheek area adjacent to the mouth.) Neck: full range of motion, supple Cardiovascular: regular rate, rhythm Respiratory: lungs clear Gastrointestinal: normal bowel sounds Extremities: normal range of motion Neurologic/Psychiatric: no motor/sensory deficits Skin: normal color, warm/dry, other Skin Problem Character: abscess Progress/Results/Core Measures Results/Orders Vital Signs/I&O 07/02/18 09:21 Temp 97.5 Pulse 84 Resp 18 B/P (MAP) 138/100 (113) Pulse Ox 99 Blood Pressure Mean: 113 Progress Progress Note : Time: 09:31 Progress Note After discussion with the patient concerning the risks and benefits of an I&D the patient elected to have the abscess incised and drained without local anesthesia. Number 11 blade was used to incise the abscess. A small amount of thick MRSA purulent material was expressed. Dressing was applied. Departure Impression Primary Impression: MRSA (methicillin resistant Staphylococcus aureus) infection Disposition: 01 HOME, SELF-CARE Condition: Improved Departure-Patient Inst. Decision time for Depature: 09:33 Referrals: [facility] (PCP/Family) Primary Care Physician Patient Instructions: Abscess Incision and Drainage (DC), MRSA (DC) Add. Discharge Instructions: Bactrim and Vicodin as prescribed. Moist heating packs to the right cheek today. Follow-up with [facility] tomorrow. Return if any problems or questions. All discharge instructions reviewed with patient and/or family. Voiced understanding. VIVIAN VALDES MD Jul 02, 2018 09:33
[2018-07-02] MEDS ORDERED: MUPIROCIN 2% OINT 22 GM (BACTROBAN) TUBE ONE (09:39)
[2018-07-02 09:46] VITALS: BP 138/100
== END 2018-07-02 09:46 | disposition home or self-care (01) ==
LOC: EDUNIT# 09:01 → ER 09:02
DX: A49.02 Methicillin resistant Staphylococcus aureus infection, unspecified site (principal); F41.9 Anxiety disorder, unspecified; F31.9 Bipolar disorder, unspecified; F17.210 Nicotine dependence, cigarettes, uncomplicated; Z98.890 Other specified postprocedural states; Z88.8 Allergy status to other drugs, medicaments and biological substances
CPT/HCPCS: 10060

== ENCOUNTER 2018-08-01 19:30 | Emergency (ER) | payer MEDICAID ==
[~2018-08-01] VITALS: Ht 170.2 cm; Wt 56.7 kg
[2018-08-01 20:18] VITALS: BP 119/81
[2018-08-01] MEDS ORDERED: BUPR-42 PO (20:30)
== END 2018-08-01 21:35 | disposition left against medical advice (07) ==
LOC: EDUNIT# 19:30 → ER 19:32
DX: K08.89 Other specified disorders of teeth and supporting structures (principal); F41.9 Anxiety disorder, unspecified; F32.9 Major depressive disorder, single episode, unspecified; F17.210 Nicotine dependence, cigarettes, uncomplicated
CPT/HCPCS: 99282

== ENCOUNTER 2018-09-22 13:52 | Emergency (ER) | payer MEDICAID ==
[~2018-09-22] VITALS: Ht 170.2 cm; Wt 56.7 kg
[~2018-09-22 13:52] MED LIST changes: +BUPR-42 PO
[2018-09-22] MEDS ORDERED: TETANUS,DIPTH,PERTUSS P/F (BOOSTRIX) 0.5 ML VIAL IM ONE (14:15)
[2018-09-22] MEDS ORDERED: ACETAMINOPHEN 325 MG TABLET PO STA (14:30)
--- NOTE | 2018-09-22 14:49 | NUR ---
mayra karimi called for advocate. [facility] will send advocate in approximately 45 mins to one hour.
[2018-09-22 15:03] LABS: BILIRUBIN,URINE NEGATIVE (NEGATIVE); CLARITY,URINE SLIGHTLY CLOUDY; COLOR,URINE YELLOW; GLUCOSE, URINE (UA) NEGATIVE (NEGATIVE); KETONES,URINE NEGATIVE (NEGATIVE); LEUKOCYTE ESTERASE ,URINE 2+ (NEGATIVE); NITRITE,URINE NEGATIVE (NEGATIVE); PH,URINE 7 (5-9); PROTEIN,URINE 1+ (NEGATIVE); UROBILINOGEN,URINE 1 MG/DL (NORMAL)
[2018-09-22 15:07] LABS: BACTERIA,URINE FEW /HPF
[2018-09-22 15:12] LABS: BENZODIAZEPINES SCREEN URINE POSITIVE (NEGATIVE)
[2018-09-22 15:13] LABS: AMPHETAMINE SCREEN, URINE POSITIVE (NEGATIVE); BARBITURATE SCREEN URINE NEGATIVE (NEGATIVE); CANNABINOID SCREEN, URINE NEGATIVE (NEGATIVE); COCAINE SCREEN URINE NEGATIVE (NEGATIVE); METHADONE STAT NEGATIVE (NEGATIVE); METHAMPHETAMINE SCREEN URINE S NEGATIVE (NEGATIVE); OPIATE SCREEN URINE NEGATIVE (NEGATIVE); OXYCODONE STAT POSITIVE (NEGATIVE); PROPOXYPHENE STAT NEGATIVE (NEGATIVE); TRICYCLIC ANTIDEPRESSANTS SCRE NEGATIVE (NEGATIVE)
--- NOTE | 2018-09-22 15:20 | NUR ---
advocate in rm with pt.
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
--- NOTE | 2018-09-22 16:10 | NUR ---
Pt reports children are now with pt's mother.
[2018-09-22] MEDS ORDERED: TRAM50TA2 PO (16:17)
[2018-09-22] MEDS ORDERED: SULF-222 PO (16:19)
[2018-09-22 16:21] VITALS: BP 137/67
== END 2018-09-22 16:21 | disposition home or self-care (01) ==
LOC: EDUNIT# 13:52 → ER 13:54
DX: R51 Headache (principal); M54.2 Cervicalgia; N39.0 Urinary tract infection, site not specified; F41.9 Anxiety disorder, unspecified; F31.9 Bipolar disorder, unspecified; F17.210 Nicotine dependence, cigarettes, uncomplicated; Z23 Encounter for immunization; Z98.890 Other specified postprocedural states; Z97.5 Presence of (intrauterine) contraceptive device; Z88.8 Allergy status to other drugs, medicaments and biological substances; Y04.8XXA Assault by other bodily force, initial encounter
CPT/HCPCS: 70450; 70486; 72125; 80306; 81000; 87088; 90715

== ENCOUNTER 2019-03-13 07:45 | Emergency (ER) | payer MEDICAID ==
[~2019-03-13] VITALS: Ht 170 cm; Wt 58.1 kg
[~2019-03-13 07:45] MED LIST changes: +SULF-222 PO; +TRAM50TA2 PO
[2019-03-13] MEDS ORDERED: CLINDAMYCIN 150 MG (CLEOCIN) CAP PO STA (09:02)
[2019-03-13] MEDS ORDERED: KETOROLAC 60 MG/2 ML VIAL IM STA (09:02)
[2019-03-13] MEDS ORDERED: LIDOCAINE 2% VISCOUS 15 ML UDC PO ONE (09:15)
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
[2019-03-13 09:54] VITALS: BP 123/87
[2019-03-13] MEDS ORDERED: CLIN300C11 PO (09:55)
[2019-03-13] MEDS ORDERED: ACHD5005 PO (09:55)
== END 2019-03-13 09:54 | disposition home or self-care (01) ==
LOC: EDUNIT# 07:45 → ER 07:46
DX: K02.9 Dental caries, unspecified (principal); F41.9 Anxiety disorder, unspecified; F31.9 Bipolar disorder, unspecified; F17.210 Nicotine dependence, cigarettes, uncomplicated; Z88.8 Allergy status to other drugs, medicaments and biological substances
CPT/HCPCS: 99283

== ENCOUNTER 2019-11-20 16:04 | Emergency (ER) | payer MEDICAID, OTHER ==
[~2019-11-20] VITALS: Ht 170.2 cm; Wt 58.9 kg
[~2019-11-20 16:04] MED LIST changes: +CLIN300C11 PO; -HYDR-3812 PO; -TRAM50TA2 PO; +TRM50T PO
[2019-11-20] MEDS ORDERED: AMOX-358 PO (16:30)
[2019-11-20] MEDS ORDERED: KETOROLAC 60 MG/2 ML VIAL IM ONE (16:30)
[2019-11-20] MEDS ORDERED: LIDOCAINE 2% VISCOUS 15 ML UDC PO ONE (16:30)
--- NOTE | 2019-11-20 16:30 | ED EENT ---
History of Present Illness General Chief Complaint: Dental Problems/Pain Stated Complaint: TOOTHACHE/JAW PAIN Nursing Triage Note: pt reports lower left jaw pain that started last night. pt reported taking midol for pain with no relief, pt then drank vodka and had no relief. Has not seen dentist for this pain. Source: patient Exam Limitations: no limitations History of Present Illness Date Seen by Provider: Nov 20, 2019 Time Seen by Provider: 16:27 Initial Comments 29-year-old female who presents to emergency room with complaints of left lower jaw pain that started last night. She does have a bad tooth on the lower left jaw. She reports that she's tried taking Midol and a shot of vodka for pain without relief. She has not called her dentist nor has seen anyone for this. She denies fevers or facial swelling. Timing/Duration: yesterday Associated Symptoms: tooth pain Allergies and Home Medications Allergies Coded Allergies: haloperidol (Verified Allergy, Unknown, 05/10/16) Home Medications Amoxicillin/Potassium Clav 1 Each Tablet, 1 EACH PO BID Prescribed by: GALEN SETHI on 11/20/19 1630 Clindamycin HCl 300 Mg Capsule, 300 MG PO Q6H Prescribed by: MARIBELL FARFAN on 03/13/19 0955 Hydrocodone Bit/Acetaminophen 1 Tab Tab, 1 EACH PO Q4-6HR PRN for PAIN-MODERATE Prescribed by: MARIBELL FARFAN on 03/13/19 0955 Sulfamethoxazole/Trimethoprim 1 Each Tablet, 1 EACH PO BID Prescribed by: JAM AVITIA on 09/22/18 1619 Tramadol HCl 50 Mg Tablet, 50 MG PO Q6H PRN for PAIN Prescribed by: JAM AVITIA on 09/22/18 1617 Patient Home Medication List Home Medication List Reviewed: Yes Review of Systems Review of Systems Constitutional: see HPI; No chills, No fever Mouth: see HPI, pain All Other Systems Reviewed Negative Unless Noted: Yes Past Dhixfhh-Iosmvp-Zzxwcp Hx Past Med/Social Hx: Reviewed Nursing Past Med/Soc Hx Patient Social History Alcohol Use: Denies Use Number of Drinks Today: AA Alcohol Beverage of Choice: Beer Recreational Drug Use: No Type Used: Cigarettes 2nd Hand Smoke Exposure: Yes Recent Foreign Travel: No Contact w/Someone Who Travel: No Recent Infectious Disease Expo: No Recent Hopitalizations: No Immunizations Up To Date Tetanus Booster (TDap): Less than 5yrs Seasonal Allergies Seasonal Allergies: Yes Past Medical History Surgeries: Yes (EYE) Eye Surgery Respiratory: No Cardiac: No Neurological: No 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 Disorders: 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 0oz. [id number]; 20.00 BMI Method:Stated General Appearance: WD/WN, no apparent distress Mouth/Throat: other (abscessed tooth numerous caries. See images for location) Cardiovascular: normal peripheral pulses, regular rate, rhythm, no edema, no gallop, no JVD, no murmur Respiratory: chest non-tender, lungs clear, normal breath sounds, no respiratory distress, no accessory muscle use Neurologic/Psychiatric: alert, normal mood/affect, oriented x 3 Skin: normal color, warm/dry Progress/Results/Core Measures Results/Orders My Orders Orders - GALEN SETHI Lidocaine 2% Viscous 15 Ml (Xylocaine Vi (11/20/19 16:30) Ketorolac Injection (Toradol Injection) (11/20/19 16:30) Amoxicillin/Clavulanate Tablet (Augmenti (11/20/19 18:00) Medications Given in ED Current Medications Medications Dose Ordered Sig/Chandler Route Start Time Stop Time Status Last Admin Dose Admin Ketorolac Tromethamine 60 mg ONCE ONCE IM 11/20/19 16:30 11/20/19 16:31 DC 11/20/19 16:35 60 MG Lidocaine HCl 15 ml ONCE ONCE PO 11/20/19 16:30 11/20/19 16:31 DC 11/20/19 16:35 15 ML Vital Signs/I&O 11/20/19 11/20/19 16:12 16:40 Temp 36.7 36.7 Pulse 91 86 Resp 12 14 B/P (MAP) 123/85 (98) 118/76 (98) Pulse Ox 100 100 O2 Delivery Room Air Blood Pressure Mean: 98 Departure Impression Primary Impression: Dental caries Additional Impression: Dental abscess Disposition: HOME, SELF-CARE Condition: Stable/Unchanged Departure-Patient Inst. Decision time for Depature: 16:29 Referrals: [facility] (PCP/Family) Primary Care Physician Patient Instructions: Tooth Abscess (DC) Add. Discharge Instructions: Take medication as needed. You may use the viscous lidocaine to the painful areas. You may use ibuprofen and Tylenol as needed for pain per packaging. Call today to schedule an appointment time for a dental consult. Return back to the emergency room for worsening symptoms or concerns as needed. All discharge instructions reviewed with patient and/or family. Voiced understanding. Scripts Amoxicillin/Potassium Clav (Augmentin 875-125 Tablet) 1 Each Tablet 1 EACH PO BID for 10 Days, #20 TAB 0 Refills Prov: GALEN SETHI 11/20/19 Images Mouth/Nose 1 - Caries, Fracture Tooth GALEN SETHI Nov 20, 2019 16:30
[2019-11-20 16:40] VITALS: BP 118/76
[2019-11-20] MEDS ORDERED: AUGMENTIN 875 MG TAB (AMOXICILLIN/CLAVULANATE) PO SCH (18:00)
== END 2019-11-20 16:41 | disposition home or self-care (01) ==
LOC: EDUNIT# 16:04 → ER 16:05
DX: K02.9 Dental caries, unspecified (principal); K04.7 Periapical abscess without sinus; F41.9 Anxiety disorder, unspecified; F31.9 Bipolar disorder, unspecified; Z88.8 Allergy status to other drugs, medicaments and biological substances
CPT/HCPCS: 99284

== ENCOUNTER 2020-01-09 03:37 | Emergency (ER) | payer OTHER ==
[~2020-01-09] VITALS: Ht 163 cm; Wt 53.0 kg
[~2020-01-09 03:37] MED LIST changes: +AMOX-358 PO
[2020-01-09 04:00] VITALS: BP 140/98
[2020-01-09 04:26] LABS: BILIRUBIN,URINE NEGATIVE (NEGATIVE); CLARITY,URINE CLEAR; COLOR,URINE YELLOW; GLUCOSE, URINE (UA) NEGATIVE (NEGATIVE); KETONES,URINE NEGATIVE (NEGATIVE); LEUKOCYTE ESTERASE ,URINE 3+ (NEGATIVE); NITRITE,URINE NEGATIVE (NEGATIVE); PROTEIN,URINE NEGATIVE (NEGATIVE)
[2020-01-09 04:33] LABS: BACTERIA,URINE FEW /HPF
[2020-01-09 05:23] LABS: BASOPHILS % (AUTO) 1 % (0-10); EOSINOPHILS # (AUTO) 0.1 10^3/uL (0.0-0.3); EOSINOPHILS % (AUTO) 1 % (0-10); HEMATOCRIT 37 % (35-52); HEMOGLOBIN 11.9 G/DL (11.5-16.0); LYMPHOCYTES # (AUTO) 3.2 X 10^3 (1.0-4.0); LYMPHOCYTES % (AUTO) 38 % (12-44); MEAN CORPUSCULAR HEMOGLOBIN 28 PG (25-34); MEAN CORPUSCULAR HGB CONC 33 G/DL (32-36); MEAN CORPUSCULAR VOLUME 87 FL (80-99); MEAN PLATELET VOLUME 9.1 FL (7.4-10.4); MONOCYTES # (AUTO) 1.1 X 10^3 (0.0-1.0); MONOCYTES % (AUTO) 13 % (0-12); NEUTROPHILS # (AUTO) 4.1 X 10^3 (1.8-7.8); NEUTROPHILS % (AUTO) 48 % (42-75); PLATELET COUNT 309 10^3/uL (130-400); WHITE BLOOD COUNT 8.5 10^3/uL (4.3-11.0)
[2020-01-09 05:47] LABS: ALANINE AMINOTRANSFERASE 10 U/L (0-55); ALBUMIN 4.3 GM/DL (3.2-4.5); ALKALINE PHOSPHATASE 61 U/L (40-136); BILIRUBIN,TOTAL 0.5 MG/DL (0.1-1.0); BUN/CREATININE RATIO 17; CALCIUM 9.3 MG/DL (8.5-10.1); CARBON DIOXIDE 25 MMOL/L (21-32); CHLORIDE 106 MMOL/L (98-107); CREATININE SERUM 0.94 MG/DL (0.60-1.30); GFR ESTIMATED > 60; GLUCOSE 101 MG/DL (70-105); MAGNESIUM 2.2 MG/DL (1.6-2.4); POTASSIUM 3.8 MMOL/L (3.6-5.0); SALICYLATE < 5.0 MG/DL (5.0-20.0); SODIUM 141 MMOL/L (135-145); TOTAL PROTEIN 7.4 GM/DL (6.4-8.2)
--- NOTE | 2020-01-09 05:47 | ED Abdominal Pain ---
General Chief Complaint: General Problems/Pain Stated Complaint: STS CONTROL HURTS Nursing Triage Note: c/o iud pain radiating to right thigh x4hrs. Sepsis Screen: No Definite Risk Source of Information: Patient, Old Records Exam Limitations: No Limitations History of Present Illness Date Seen by Provider: Jan 09, 2020 Time Seen by Provider: 04:07 Initial Comments This 29-year-old woman presents to the emergency room complaining of pelvic and genital pain which she presumes to be her ParaGard IUD. She also presumes that she had a miscarriage earlier in the week because she had heavy bleeding. She never had a positive test. On exam she has tenderness throughout the abdomen. She denies any vomiting or diarrhea. She is afebrile. Although she reports being in severe pain I had to shake her several times to wake her up for the interview and exam. She seems to have a difficult time staying awake during the exam despite claiming she is in severe pain. She was recently incarcerated and released from custodial. She reports having this problem in custodial but states "they refused me care". Patient denies any drug or alcohol abuse but she appears impaired at this time. She has something on her face that has the appearance of pink paint. She does not know how that got there. She has had numerous prior visits to the emergency room. Many of those have been for dental pain. One was noted to be for PID. Patient also reports a shooting pain down her right buttock. Allergies and Home Medications Allergies Coded Allergies: haloperidol (Verified Allergy, Unknown, 05/10/16) Home Medications Amoxicillin/Potassium Clav 1 Each Tablet, 1 EACH PO BID Prescribed by: GALEN SETHI on 11/20/19 1630 Clindamycin HCl 300 Mg Capsule, 300 MG PO Q6H Prescribed by: MARIBELL FARFAN on 03/13/19 0955 Hydrocodone Bit/Acetaminophen 1 Tab Tab, 1 EACH PO Q4-6HR PRN for PAIN-MODERATE Prescribed by: MARIBELL FARFAN on 03/13/19 0955 Sulfamethoxazole/Trimethoprim 1 Each Tablet, 1 EACH PO BID Prescribed by: JAM AVITIA on 09/22/18 1619 Tramadol HCl 50 Mg Tablet, 50 MG PO Q6H PRN for PAIN Prescribed by: JAM AVITIA on 09/22/18 1617 Patient Home Medication List Home Medication List Reviewed: Yes Review of Systems Review of Systems Constitutional: no symptoms reported EENTM: No Symptoms Reported Respiratory: No Symptoms Reported Cardiovascular: No Symptoms Reported Gastrointestinal: See HPI Genitourinary: See HPI Musculoskeletal: no symptoms reported Skin: no symptoms reported Psychiatric/Neurological: See HPI Endocrine: No Symptoms Reported Hematologic/Lymphatic: No Symptoms Reported Past Bqacrnl-Mrgiwe-Okxtmr Hx Past Med/Social Hx: Reviewed Nursing Past Med/Soc Hx Patient Social History Alcohol Use: Occasionally Uses Number of Drinks Today: AA Alcohol Beverage of Choice: Beer Recreational Drug Use: No Drug of Choice: denies Smoking Status: Current Everyday Smoker Type Used: Cigarettes 2nd Hand Smoke Exposure: Yes Recent Foreign Travel: No Contact w/Someone Who Travel: No Recent Infectious Disease Expo: No Recent Hopitalizations: No Physical Abuse: No Sexual Abuse: No Mistreated: No Fear: No Immunizations Up To Date Tetanus Booster (TDap): Less than 5yrs Seasonal Allergies Seasonal Allergies: Yes Past Medical History Surgeries: Yes Eye Surgery Respiratory: No Cardiac: No Neurological: No : No 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 Disorders: No 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 0oz. [id number]; 19.00 BMI Method:Stated General Appearance: WD/WN, other (sleeping. Appears in pain when awoken, but has trouble staying awake.) HEENT: PERRL/EOMI, normal ENT inspection Neck: normal inspection Respiratory: lungs clear, normal breath sounds, no respiratory distress Cardiovascular: regular rate, rhythm, no edema Gastrointestinal: normal bowel sounds, soft, tenderness (generalized) Extremities: normal inspection, no pedal edema Pelvic: normal external exam, tender w/ cervical motion (with collection of the swabs), other (cervix appears engorged. There is purulent drainage coming from the os. At least one IUD string is visible through the office. 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 as tested, no motor/sensory deficits, other (somnolent) Skin: normal color, warm/dry Progress/Results/Core Measures Results/Orders Lab Results Laboratory Tests Test 01/09/20 04:15 01/09/20 05:15 01/09/20 06:05 Range/Units Urine Color YELLOW Urine Clarity CLEAR Urine pH 6.0 5-9 Urine Specific [place] 1.010 L 1.016-1.022 Urine Protein NEGATIVE NEGATIVE Urine Glucose (UA) NEGATIVE NEGATIVE Urine Ketones NEGATIVE NEGATIVE Urine Nitrite NEGATIVE NEGATIVE Urine Bilirubin NEGATIVE NEGATIVE Urine Urobilinogen 0.2 < = 1.0 MG/DL Urine Leukocyte Esterase 3+ H NEGATIVE Urine RBC (Auto) 3+ H NEGATIVE Urine RBC 2-5 H /HPF Urine WBC 10-25 H /HPF Urine Crystals NONE /LPF Urine Bacteria FEW H /HPF Urine Casts NONE /LPF Urine Mucus NEGATIVE /LPF Urine Culture Indicated YES Urine Opiates Screen NEGATIVE NEGATIVE Urine Oxycodone Screen NEGATIVE NEGATIVE Urine Methadone Screen NEGATIVE NEGATIVE Urine Propoxyphene Screen NEGATIVE NEGATIVE Urine Barbiturates Screen NEGATIVE NEGATIVE Ur Tricyclic Antidepressants Screen NEGATIVE NEGATIVE Urine Phencyclidine Screen NEGATIVE NEGATIVE Urine Amphetamines Screen POSITIVE H NEGATIVE Urine Methamphetamines Screen POSITIVE H NEGATIVE Urine Benzodiazepines Screen POSITIVE H NEGATIVE Urine Cocaine Screen NEGATIVE NEGATIVE Urine Cannabinoids Screen NEGATIVE NEGATIVE White Blood Count 8.5 4.3-11.0 10^3/uL Red Blood Count 4.20 L 4.35-5.85 10^6/uL Hemoglobin 11.9 11.5-16.0 G/DL Hematocrit 37 35-52 % Mean Corpuscular Volume 87 80-99 FL Mean Corpuscular Hemoglobin 28 25-34 PG Mean Corpuscular Hemoglobin Concent 33 32-36 G/DL Red Cell Distribution Width 13.4 10.0-14.5 % Platelet Count 309 130-400 10^3/uL Mean Platelet Volume 9.1 7.4-10.4 FL Neutrophils (%) (Auto) 48 42-75 % Lymphocytes (%) (Auto) 38 12-44 % Monocytes (%) (Auto) 13 H 0-12 % Eosinophils (%) (Auto) 1 0-10 % Basophils (%) (Auto) 1 0-10 % Neutrophils # (Auto) 4.1 1.8-7.8 X 10^3 Lymphocytes # (Auto) 3.2 1.0-4.0 X 10^3 Monocytes # (Auto) 1.1 H 0.0-1.0 X 10^3 Eosinophils # (Auto) 0.1 0.0-0.3 10^3/uL Basophils # (Auto) 0.0 0.0-0.1 10^3/uL Sodium Level 141 135-145 MMOL/L Potassium Level 3.8 3.6-5.0 MMOL/L Chloride Level 106 98-107 MMOL/L Carbon Dioxide Level 25 21-32 MMOL/L Anion Gap 10 5-14 MMOL/L Blood Urea Nitrogen 16 7-18 MG/DL Creatinine 0.94 0.60-1.30 MG/DL Estimat Glomerular Filtration Rate > 60 BUN/Creatinine Ratio 17 Glucose Level 101 70-105 MG/DL Calcium Level 9.3 8.5-10.1 MG/DL Corrected Calcium 9.1 8.5-10.1 MG/DL Magnesium Level 2.2 1.6-2.4 MG/DL Total Bilirubin 0.5 0.1-1.0 MG/DL Aspartate Amino Transf (AST/SGOT) 19 5-34 U/L Alanine Aminotransferase (ALT/SGPT) 10 0-55 U/L Alkaline Phosphatase 61 40-136 U/L C-Reactive Protein High Sensitivity 0.08 0.00-0.50 MG/DL Total Protein 7.4 6.4-8.2 GM/DL Albumin 4.3 3.2-4.5 GM/DL Serum Test, Qualitative NEGATIVE NEGATIVE Salicylates Level < 5.0 L 5.0-20.0 MG/DL Acetaminophen Level < 10 L 10-30 UG/ML Serum Alcohol < 10 <10 MG/DL Micro Results Microbiology 01/09/20 Genital Culture, Resulted Pending 01/09/20 LORIN Preparation - Final, Resulted 01/09/20 Wet Prep - Final, Resulted My Orders Orders - BHAVESH NOGUEIRA MD Ua Culture If Indicated (01/09/20 04:07) Urine Bedside (01/09/20 04:07) Urine Culture (01/09/20 04:15) Cbc With Automated Diff (01/09/20 05:02) Comprehensive Metabolic Panel (01/09/20 05:02) Hs C Reactive Protein (01/09/20 05:02) Hcg,Qualitative Serum (01/09/20 05:02) Magnesium (01/09/20 05:02) Ed Iv/Invasive Line Start (01/09/20 05:02) Acetaminophen (01/09/20 05:02) Alcohol (01/09/20 05:02) Drug Screen Stat (Urine) (01/09/20 05:02) Salicylate (01/09/20 05:02) Ketorolac Injection (Toradol Injection) (01/09/20 06:00) Wet Prep (01/09/20 06:16) Neisseria Gonorrhea Swab (01/09/20 06:16) Genital Culture (01/09/20 06:16) Lorin Prep (01/09/20 06:16) Chlamydia Trachomatis Swab (01/09/20 06:16) Ceftriaxone For Iv Use (Rocephin For I (01/09/20 06:30) Azithromycin Tablet (Zithromax Tablet) (01/09/20 06:30) Medications Given in ED Current Medications Medications Dose Ordered Sig/Chandler Route Start Time Stop Time Status Last Admin Dose Admin Azithromycin 1,000 mg ONCE ONCE PO 01/09/20 06:30 01/09/20 06:31 DC 01/09/20 06:39 1,000 MG Ceftriaxone Sodium 1000 mg/ Sterile Water 10 ml @ 200 mls/hr ONCE ONCE IV 01/09/20 06:30 01/09/20 06:32 DC 01/09/20 06:39 200 MLS/HR Ketorolac Tromethamine 30 mg ONCE ONCE IVP 01/09/20 06:00 01/09/20 06:01 DC 01/09/20 06:39 30 MG Vital Signs/I&O 01/09/20 04:00 Temp 36.5 Pulse 89 Resp 20 B/P (MAP) 140/98 (112) Pulse Ox 98 O2 Delivery Room Air Blood Pressure Mean: 112 Progress Progress Note #1: Time: 06:19 Progress Note Pelvic exam was performed. The cervix appeared to be engorged. There is slight bleeding from the os as well as purulent drainage. There was pain with collection of the specimens. Patient is being treated with Rocephin and azithromycin. The pelvic swabs are pending results at this time. Patient was offered Toradol for treatment of her pain but declined. Progress Note #2: Time: 07:41 Progress Note Patient received Rocephin and azithromycin. While awaiting preliminary vaginal swab results she walked out of the building. Vaginal swab results were as follows: GENITAL CULTURE Source: CERVIX Order Location: Emergency Room - [address] [facility] LORIN PREP Final Verified 01/09/20731Final Source: CERVIX Order Location: Emergency Room [facility] Test not performed WET PREP Final Verified 01/09/20731Final Source: CERVIX Order Location: Emergency Room [facility] POSITIVE FOR WBC'S POSITIVE FOR RBC'S NO YEAST OBSERVED, NO TRICHOMONAS OBSERVED NO CLUE CELLS OBSERVED Departure Impression Primary Impression: Lower abdominal pain Additional Impressions: Cervicitis Polysubstance abuse Urinary tract infection Qualified Codes: N39.0 - Urinary tract infection, site not specified Disposition: 07 AGAINST MEDICAL ADVICE Condition: Against Medical Advice Departure-Patient Inst. Referrals: [facility] (PCP/Family) Primary Care Physician BHAVESH NOGUEIRA MD Jan 09, 2020 05:47
[2020-01-09 05:49] LABS: AMPHETAMINE SCREEN, URINE POSITIVE (NEGATIVE); BARBITURATE SCREEN URINE NEGATIVE (NEGATIVE); BENZODIAZEPINES SCREEN URINE POSITIVE (NEGATIVE); CANNABINOID SCREEN, URINE NEGATIVE (NEGATIVE); COCAINE SCREEN URINE NEGATIVE (NEGATIVE); METHADONE STAT NEGATIVE (NEGATIVE); METHAMPHETAMINE SCREEN URINE S POSITIVE (NEGATIVE); OPIATE SCREEN URINE NEGATIVE (NEGATIVE); OXYCODONE STAT NEGATIVE (NEGATIVE); PROPOXYPHENE STAT NEGATIVE (NEGATIVE); TRICYCLIC ANTIDEPRESSANTS SCRE NEGATIVE (NEGATIVE)
[2020-01-09 05:50] LABS: ACETAMINOPHEN < 10 UG/ML (10-30)
[2020-01-09] MEDS ORDERED: KETOROLAC 30 MG/ML VIAL IVP ONE (06:00)
[2020-01-09] MEDS ORDERED: AZITHROMYCIN 250 MG TAB (ZITHROMAX) PO ONE (06:30)
[2020-01-09] MEDS ORDERED: cefTRIAXone FOR IV USE 1,000 MG in WATER (STERILE) FOR INJECTION 10 ML IV ONE (06:30)
--- NOTE | 2020-01-09 07:00 | NUR ---
PATIENT CAME OUT OF ROOM AND ASKED IF SHE WAS READY FOR DISCHARGE. INFORMED I WOULD CHECK.
--- NOTE | 2020-01-09 07:30 | NUR ---
PATIENT NOT IN ROOM.
== END 2020-01-09 07:30 | disposition left against medical advice (07) ==
LOC: EDUNIT# 03:37 → ER 03:39
DX: R10.84 Generalized abdominal pain (principal); N72 Inflammatory disease of cervix uteri; N39.0 Urinary tract infection, site not specified; F19.10 Other psychoactive substance abuse, uncomplicated; F17.210 Nicotine dependence, cigarettes, uncomplicated; Z88.8 Allergy status to other drugs, medicaments and biological substances
CPT/HCPCS: 80053; 80306; 81000; 83735; 84703 ×2; 85025; 86141; 87070; 87077; 87088; 87185; 87205; 87210; 87491; 87591; 99284; G0480 ×3; 36415; 80320; 80329